=== PATIENT | female | born 1960 | race Caucasian/White ===

== ENCOUNTER 2016-06-05 15:19 | Inpatient (IN) | payer MEDICARE, MEDICAID ==
[2016-06-05 16:48] LABS: ABSOLUTE LYMPHOCYTES (AUTO) 0.6 10^3/uL (0.5-4.7); ABSOLUTE MONOCYTES (AUTO) 0.9 10^3/uL (0.1-1.4); BASOPHILS % (AUTO) 0.2 % (0-2); HEMATOCRIT 47.4 % (36.0-47.0); HEMOGLOBIN 16.2 g/dL (12.0-15.5); HGB HCT DIFFERENCE 1.2; MEAN CORPUSCULAR HEMOGLOBIN 31.8 pg (27.0-33.4); MEAN CORPUSCULAR HGB CONC 34.3 g/dL (32.0-36.0); MEAN CORPUSCULAR VOLUME 93 fl (80-97); MONOCYTES % (AUTO) 10.2 % (3-13); RED BLOOD COUNT 5.11 10^6/uL (3.72-5.28); SEGMENTED NEUTROPHILS % (AUTO) 82.6 % (42-78); WHITE BLOOD COUNT 8.5 10^3/uL (4.0-10.5)
[2016-06-05 17:02] LABS: ALANINE AMINOTRANSFERASE 38 U/L (9-52); ALBUMIN 3.6 g/dL (3.5-5.0); ALKALINE PHOSPHATASE 66 U/L (38-126); ASPARTATE AMINO TRANSFERASE 24 U/L (14-36); BILIRUBIN,TOTAL 0.6 mg/dL (0.2-1.3); BLOOD UREA NITROGEN 26 mg/dL (7-20); CALCIUM 9.1 mg/dL (8.4-10.2); CHLORIDE 76 mmol/L (98-107); CREATINE KINASE 38 U/L (30-135); CREATININE RESULT 0.51 mg/dL (0.52-1.25); GLUCOSE 95 mg/dL (75-110); POTASSIUM 4.1 mmol/L (3.6-5.0); SODIUM 126.8 mmol/L (137-145); TOTAL PROTEIN 6.6 g/dL (6.3-8.2)
[2016-06-05 17:08] LABS: ANION GAP 13 (5-19); CARBON DIOXIDE 38 mmol/L (22-30)
[2016-06-05 17:13] LABS: CREATINE KINASE MB 3.1 ng/mL (<4.55); TROPONIN I 0.019 ng/mL
[2016-06-05] MEDS ORDERED: FUROSEMIDE INJ/PF 40 MG/4 ML SDV IV ONE (18:05)
[2016-06-05 18:35] LABS: APPEARANCE,URINE SLIGHTLY-CLOUDY; BILIRUBIN,URINE NEGATIVE (NEGATIVE); GLUCOSE, URINE NEGATIVE (NEGATIVE); KETONES,URINE NEGATIVE (NEGATIVE); LEUKOCYTE ESTERASE,URINE LARGE (NEGATIVE); NITRITE,URINE NEGATIVE (NEGATIVE); PROTEIN,URINE NEGATIVE (NEGATIVE); URINE SPECIFIC GRAVITY 1.018; UROBILINOGEN,URINE NEGATIVE mg/dL (<2.0)
--- NOTE | 2016-06-05 18:54 | ER Document Report ---
ED Respiratory Problem - General Chief Complaint: Breathing Difficulty Stated Complaint: DIFFICULTY BREATHING Notes: This is a 55-year-old female with history of alcoholism in remission, ongoing tobacco abuse, vascular dementia, COPD who presents from assisted living facility where she was found slumped in a chair with ayala color, perioral cyanosis and oxygen saturations registering in the 40s. No recent fevers. Patient denies any chest pain. She states she is feeling better at this time. Daughter states mentally she is at her baseline. TRAVEL OUTSIDE OF THE [place] IN LAST 30 DAYS: No - Related Data Allergies/Adverse Reactions: Penicillins Allergy (Mild, Verified 05/18/14 22:01) [place] And Derivatives Adverse Reaction (Verified 05/21/14 09:26) coffee (Coffea arabica) [Coffee] Adverse Reaction (Verified 05/21/14 09:22) milk [Milk] Adverse Reaction (Verified 05/21/14 09:23) shellfish derived [Shellfish Derived] Adverse Reaction (Verified 05/21/14 09:29) tomato [Tomato] Adverse Reaction (Verified 05/21/14 09:25) Past Medical History - General Information source: Patient, Relative - The patient's daughter is her legal guardian - Social History Smoking Status: Current Some Day Smoker Frequency of alcohol use: history of heavy alcohol use none currently Drug Abuse: None Lives with: Other - Assisted-living facility Family History: Reviewed & Not Pertinent - Past Medical History Cardiac Medical History: Reports: Hx Hypertension Psychiatric Medical History: Denies: Hx Depression - Immunizations Hx Diphtheria, Pertussis, Tetanus Vaccination: Yes Review of Systems - Review of Systems Constitutional: denies: Fever Cardiovascular: denies: Chest pain, Syncope Respiratory: Cough, Short of breath, Wheezing Gastrointestinal: denies: Abdominal pain, Vomiting Genitourinary: denies: Burning Musculoskeletal: denies: Leg swelling Skin: denies: Rash Hematologic/Lymphatic: denies: Swollen glands Neurological/Psychological: denies: Numbness, Tingling Physical Exam - Vital signs Vitals: Pulse Ox 76 L 06/05/16 15:35 - General General appearance: Alert In distress: None Notes: Extremely frail appearing female who appears much older than her stated age, normal work of breathing, oxygen saturation notably hypoxic at 88% on nasal cannula - HEENT Head: Normocephalic Mouth/Lips: Normal Mucous membranes: Dry Pharynx: Normal Neck: Normal - Respiratory Respiratory status: No respiratory distress, Other - Cough productive of scanty yellow sputum Chest status: Nontender Breath sounds: Decreased air movement, Rales, Wheezing Chest palpation: Normal - Cardiovascular Rhythm: Regular Murmur: No - Abdominal Inspection: Normal Tenderness: Nontender - Back Back: Normal - Extremities General upper extremity: No: Edema General lower extremity: No: Edema - Neurological Neuro grossly intact: Yes Orientation: AAOx4 Motor strength normal: LUE, RUE, LLE, RLE - Psychological Associated symptoms: Other - Uncooperative at times but able to be redirected easily - Skin Skin Temperature: Warm Skin Moisture: Dry Skin Color: Normal Course - Re-evaluation Re-evalutation: 06/05/16 20:27 Patient on able or willing to tolerate the BiPAP or the facemask. Every time she removes the Ventimask her oxygen drops to 80% or lower. Patient intubated successfully after one attempt. Medication with etomidate and succinylcholine. 7.5 ET tube - Vital Signs Vital signs: Temp Pulse Resp BP Pulse Ox 98.7 F 22 H 97/63 L 95 06/05/16 16:00 06/05/16 18:48 06/05/16 18:48 06/05/16 18:48 - Laboratory Result Diagrams: 06/05/16 16:30 06/05/16 16:30 Laboratory results interpreted by me: 06/05/16 06/05/16 06/05/16 16:30 16:30 16:30 Hgb 16.2 H Hct 47.4 H Seg Neutrophils % 82.6 H Lymphocytes % 7.0 L Carbonic Acid ABG pCO2 ABG HCO3 ABG Total CO2 Sodium 126.8 L Chloride 76 L Carbon Dioxide 38 H BUN 26 H Creatinine 0.51 L NT-Pro-B Natriuret Pep 2840 H Urine Blood Ur Leukocyte Esterase 06/05/16 06/05/16 17:20 18:43 Hgb Hct Seg Neutrophils % Lymphocytes % Carbonic Acid 2.32 H ABG pCO2 77.0 H* ABG HCO3 44.0 H ABG Total CO2 46.4 H Sodium Chloride Carbon Dioxide BUN Creatinine NT-Pro-B Natriuret Pep Urine Blood SMALL H Ur Leukocyte Esterase LARGE H - Diagnostic Test Radiology reviewed: Image reviewed, Reports reviewed - EKG Interpretation by Me EKG shows normal: Sinus rhythm Rate: Normal Rhythm: NSR Procedures - Intubation Orotracheal Airway evaluation: Normal anatomy Mallampati Classification: Class 1 Medications: Etomidate, Succinylcholine Intubation method: Orotracheal Blade type: Cornina Blade size: 3 ETT size: 7.5 ETT secured at: Teeth - 21 Breath Sounds after Intubation: Equal End tidal CO2 confirmed: Yes Critical Care Note - Critical Care Note Total time excluding time spent on procedures (mins): 90 Comments: multiple reassesments, intubation, time spent discussion with legal guardian, research consultant coordination Discharge - Discharge Clinical Impression: Acute hypoxemic respiratory failure, Chronic bronchitis with COPD (chronic obstructive pulmonary disease), Abnormal urinalysis Condition: Serious Disposition: ADMITTED INPATIENT Admitting Provider: Hospitalist Unit Admitted: [facility] Referrals: LORI OLEA DO [Primary Care Provider] - Follow up as needed
[2016-06-05 19:06] LABS: ARTERIAL BLOOD BASE EXCESS 14.3 mmol/L
[2016-06-05] MEDS ORDERED: CEFTRIAXONE 1 GM/D5W RTU 50 ML IV ONE (19:26)
[2016-06-05] MEDS ORDERED: ETOMIDATE INJ/PF 20 MG/10 ML SDV IV ONE ×2 (20:12→20:51)
[2016-06-05] MEDS ORDERED: KETAMINE HCL INJ 500 MG/10 ML VIAL IV ONE (20:41)
[2016-06-05] MEDS ORDERED: KETAMINE HCL INJ 500 MG/10 ML VIAL ONE (20:41)
[2016-06-05] MEDS ORDERED: KETAMINE HCL INJ 500 MG/10 ML VIAL IV PRN (20:44)
[2016-06-05] MEDS ORDERED: VECURONIUM BROMIDE INJ 10 MG VIAL IV ONE ×2 (20:47→20:48)
[2016-06-05] MEDS ORDERED: ACETAMINOPHEN 325 MG TABLET NG PRN (20:48)
[2016-06-05] MEDS ORDERED: SUCCINYLCHOLINE CHLORIDE INJ 200 MG/10 ML VIAL IV ONE (20:51)
[2016-06-05 22:51] LABS: URINE BARBITURATES SCREEN NEGATIVE; URINE METHADONE SCREEN NEGATIVE; URINE PHENCYCLIDINE SCREEN NEGATIVE
[2016-06-05] MEDS: FAMOTIDINE INJ/PF 20 MG/2 ML SDV IV SCH (23:05)
[2016-06-05] MEDS: HEPARIN SOD (PORCINE) 5,000 UNIT/ML 1 ML SYRINGE SUBCUT SCH (23:05)
[2016-06-05 23:44] LABS: CREATINE KINASE MB 2.68 ng/mL (<4.55)
[2016-06-05 23:48] LABS: TROPONIN I 0.039 ng/mL
[2016-06-06] MEDS: IPRATROPIUM/ALBUTEROL 0.5-2.5 MG/3 ML AMPUL NEB SCH ×4 (01:37→20:45)
--- NOTE | 2016-06-06 04:25 | PDOC H&P ---
History of Present Illness Admission Date/PCP: 06/05/16 20:48 LORI OLEA Patient complains of: Hypoxia and altered mental status History of Present Illness: LUDY CHOU is a 55 year old female with a past medical history of COPD and severe vascular dementia who is a long-term correction resident who was found by staff to have altered mental status cyanosis and oxygen saturations in the 40s. Patient is resuscitated with oxygen brought emergency room for evaluation with dementia and delirium and combativeness unable to tolerate BiPAP she is intubated for acute on chronic respiratory failure and referred to the hospitalist for admission. Unable to provide additional history. Past Medical History Cardiac Medical History: Reports: Hypertension Pulmonary Medical History: Reports: Chronic Obstructive Pulmonary Disease (COPD) Neurological Medical History: Reports: Other - Advanced vascular dementia Psychiatric Medical History: Reports: Dementia, Other - Former alcohol abuse Denies: Depression Past Surgical History Past Surgical History: Reports: Carotid Endarterectomy Social History Information Source: [facility] Records Lives with: Retirement, Other - Assisted-living facility Smoking Status: Current Every Day Smoker Cigarettes Packs Per Day: 1 Last Time Smoked: 06/05/16 Frequency of Alcohol Use: Heavy Hx Recreational Drug Use: No Drugs: None Hx Prescription Drug Abuse: No - Advance Directive Resuscitation Status: Full Code Family History Family History: Reviewed & Not Pertinent, Other - Unable to obtain Parental Family History Reviewed: Yes Children Family History Reviewed: Yes Sibling(s) Family History Reviewed.: Yes Medication/Allergy Home Medications: Amlodipine Besylate [Norvasc] 10 mg PO DAILY 10/02/13 Buspirone HCl [Buspar 10 mg Tablet] 7.5 mg PO BID 10/02/13 Ferrous Sulfate [Feosol 325 mg Tablet] 325 mg PO DAILY #30 tab 10/02/13 Pantoprazole Sodium [Protonix] 20 mg PO DAILY 10/02/13 Trazodone HCl [Desyrel 50 mg Tablet] 50 mg PO DAILY 10/02/13 Donepezil HCl [Aricept 5 mg Tablet] 5 mg PO DAILY #30 tablet 05/21/14 Lisinopril [Prinivil 10 mg Tablet] 10 mg PO Q12 #60 tablet 05/21/14 Allergies/Adverse Reactions: Penicillins Allergy (Mild, Verified 05/18/14 22:01) [place] And Derivatives Adverse Reaction (Verified 05/21/14 09:26) coffee (Coffea arabica) [Coffee] Adverse Reaction (Verified 05/21/14 09:22) milk [Milk] Adverse Reaction (Verified 05/21/14 09:23) shellfish derived [Shellfish Derived] Adverse Reaction (Verified 05/21/14 09:29) tomato [Tomato] Adverse Reaction (Verified 05/21/14 09:25) Review of Systems ROS unobtainable: Due to mental status Physical Exam Vital Signs: Temp Pulse Resp BP Pulse Ox 99.3 F 81 14 133/74 H 95 06/06/16 01:00 06/06/16 03:00 06/06/16 03:00 06/06/16 03:00 06/06/16 03:00 Intake & Output 06/04/16 06/05/16 06/06/16 11:59 11:59 11:59 Output Total 100 Balance -100 Weight 41.3 kg General appearance: PRESENT: no acute distress, disheveled, thin, other - Appearing much older than stated age with temporal wasting and cachexia Head exam: PRESENT: atraumatic, normocephalic Eye exam: PRESENT: conjunctiva pink, EOMI, PERRLA. ABSENT: scleral icterus Mouth exam: PRESENT: moist, tongue midline Neck exam: PRESENT: other - Bilateral endarterectomy scarring. ABSENT: carotid bruit, JVD, lymphadenopathy, thyromegaly Respiratory exam: PRESENT: accessory muscle use, decreased breath sounds, symmetrical, tachypnea Cardiovascular exam: PRESENT: RRR. ABSENT: diastolic murmur, rubs, systolic murmur Pulses: PRESENT: normal dorsalis pedis pul Vascular exam: PRESENT: normal capillary refill GI/Abdominal exam: PRESENT: normal bowel sounds, soft. ABSENT: distended, guarding, mass, organolmegaly, rebound, tenderness Rectal exam: PRESENT: deferred Extremities exam: PRESENT: full ROM. ABSENT: calf tenderness, clubbing, pedal edema Neurological exam: PRESENT: motor sensory deficit, other - Intubated and sedated Psychiatric exam: PRESENT: appropriate affect, normal mood. ABSENT: homicidal ideation, suicidal ideation Skin exam: PRESENT: dry, intact, warm. ABSENT: cyanosis, rash Results Laboratory Results: 06/05/16 06/05/16 23:05 23:05 Creatine Kinase 66 CK-MB (CK-2) 2.68 Troponin I 0.039 Impressions: Chest X-Ray 06/05/16 15:22 IMPRESSION: Pulmonary vascular congestion Mild interstitial edema at the lung bases Assessment & Plan - Diagnosis (1) Urinary tract infection Qualifiers: Urinary tract infection type: site unspecified Is this a current diagnosis for this admission?: YesPlan: Empiric antibiotics gentle IV fluids reevaluation of labs and urine culture (2) Hyponatremia Is this a current diagnosis for this admission?: YesPlan: likely hydrochlorothiazide use I will hold this medication challenge with IV fluids given hypotension reevaluate chemistry to 12 hours (3) Acute encephalopathy Is this a current diagnosis for this admission?: YesPlan: Acute on chronic delirium with acute exacerbation secondary to urinary tract infection (4) Chronic bronchitis with COPD (chronic obstructive pulmonary disease) Is this a current diagnosis for this admission?: YesPlan: Wean from ventilator repeat ABG in the morning scheduled albuterol and Atrovent and empiric antibiotics (5) Dementia Qualifiers: Dementia type: vascular dementia Dementia behavioral disturbance: with behavioral disturbance Qualified Code(s): F01.51 - Vascular dementia with behavioral disturbance Is this a current diagnosis for this admission?: YesPlan: Patient will likely be challenging to extubate as I am unclear if she will be able to follow directions. - Time Time Spent: 50 to 70 Minutes
[2016-06-06 05:12] LABS: ABSOLUTE MONOCYTES (AUTO) 1.1 10^3/uL (0.1-1.4); ABSOLUTE NEUT (AUTO) 7.7 10^3/uL (1.7-8.2); BASOPHILS % (AUTO) 0.4 % (0-2); EOSINOPHILS % (AUTO) 0.1 % (0-6); HEMOGLOBIN 14.5 g/dL (12.0-15.5); HGB HCT DIFFERENCE 1.5; LYMPHOCYTES % (AUTO) 10.6 % (13-45); MEAN CORPUSCULAR HGB CONC 34.5 g/dL (32.0-36.0); MEAN CORPUSCULAR VOLUME 93 fl (80-97); RED BLOOD COUNT 4.53 10^6/uL (3.72-5.28); RED CELL DISTRIBUTION WIDTH 13.7 % (11.5-14.0); SEGMENTED NEUTROPHILS % (AUTO) 77.9 % (42-78); WHITE BLOOD COUNT 9.8 10^3/uL (4.0-10.5)
[2016-06-06 05:20] LABS: ANION GAP 9 (5-19); BLOOD UREA NITROGEN 25 mg/dL (7-20); CALCIUM 7.8 mg/dL (8.4-10.2); CARBON DIOXIDE 37 mmol/L (22-30); CHLORIDE 84 mmol/L (98-107); CREATINE KINASE 58 U/L (30-135); CREATININE RESULT 0.57 mg/dL (0.52-1.25); GLUCOSE 72 mg/dL (75-110); POTASSIUM 3.2 mmol/L (3.6-5.0); SODIUM 130.1 mmol/L (137-145)
[2016-06-06 05:35] LABS: CREATINE KINASE MB 1.42 ng/mL (<4.55); TROPONIN I 0.049 ng/mL
[2016-06-06 05:36] LABS: ARTERIAL BLOOD BASE EXCESS 12.6 mmol/L; ARTERIAL BLOOD O2 SATURATION 93.9 % (94-98)
[2016-06-06] MEDS: HEPARIN SOD (PORCINE) 5,000 UNIT/ML 1 ML SYRINGE SUBCUT SCH ×3 (05:48→21:45)
[2016-06-06] MEDS: PROPOFOL 100 ML IV PRN ×2 (06:19→20:04)
[2016-06-06] MEDS ORDERED: INSULIN LISPRO 100 UNIT/ML 3 ML VIAL SUBCUT PRN (08:08)
[2016-06-06] MEDS ORDERED: DEXTROSE 50%-WATER 25 GM/50 ML DISP.SYRIN IV PRN ×2 (08:08)
[2016-06-06] MEDS ORDERED: DEXTROSE 40% GEL 15 GM TUBE PO PRN ×2 (08:08)
[2016-06-06] MEDS ORDERED: GLUCAGON,HUMAN RECOMB 1 MG INJ IM PRN (08:08)
[2016-06-06] MEDS ORDERED: POTASSIUM CHLORIDE 20 MEQ/15 ML UDCUP NG ONE (09:00)
[2016-06-06] MEDS ORDERED: LANSOPRAZOLE 15 MG TAB.RAP.DR PO ONE (10:00)
[2016-06-06] MEDS ORDERED: FENTANYL CITRATE INJ/PF 100 MCG/2 ML AMPUL IV PRN (10:00)
[2016-06-06] MEDS ORDERED: (PENDING PHARMACY ID) (Pantoprazole Sodium [Protonix] 20 MG) PO SCH (10:00)
[2016-06-06] MEDS ORDERED: MIDAZOLAM 2 MG/2 ML INJ IV PRN (10:00)
[2016-06-06] MEDS ORDERED: NICOTINE 14 MG/24 HR PATCH.TD24 TD PRN (10:03)
[2016-06-06] MEDS: LEVOFLOXACIN 750 MG/D5W RTU 150 ML IV SCH (10:09)
[2016-06-06] MEDS: FAMOTIDINE INJ/PF 20 MG/2 ML SDV IV SCH ×2 (10:09→21:45)
[2016-06-06] MEDS: DEXTROSE 5%-NORMAL SALINE 1,000 ML IV PRN ×2 (10:10→21:46)
[2016-06-06] MEDS ORDERED: FENTANYL CITRATE INJ/PF 100 MCG/2 ML AMPUL IV ONE (11:00)
[2016-06-06] MEDS ORDERED: HALOPERIDOL 1 MG TABLET PO ONE (11:15)
[2016-06-06] MEDS ORDERED: LIDOCAINE 5% (700 MG) TRANSDERMAL ADH..PATCH TP ONE (11:15)
[2016-06-06] MEDS ORDERED: INFLUENZA ADLT QUAD (36MOS+) 2016-17 VAC 0.5 ML SYR IM PRN (11:45)
[2016-06-06] MEDS ORDERED: LEVALBUTEROL HCL NEB 1.25 MG/3 ML AMPUL NEB SCH (12:00)
[2016-06-06 12:33] LABS: CREATINE KINASE MB 1.03 ng/mL (<4.55); TROPONIN I 0.026 ng/mL
[2016-06-06 13:05] LABS: VENOUS BLOOD BASE EXCESS 8.9 mmol/L; VENOUS BLOOD HCO3 35.3 mmol/L (20-32); VENOUS BLOOD PCO2 53.6 mmHg (35-63); VENOUS BLOOD PH 7.44 (7.30-7.42)
[2016-06-06] MEDS: METHYLPREDNISOLONE INJ 40 MG/1 ML SDV IV SCH ×2 (14:42→21:45)
--- NOTE | 2016-06-06 15:45 | EKG REPORT ---
SEVERITY:- ABNORMAL ECG - SINUS RHYTHM RIGHT ATRIAL ABNORMALITY LEFT VENTRICULAR HYPERTROPHY BORDERLINE PROLONGED QT INTERVAL : Confirmed by: Robb Monteiro 06-Jun-2016 15:45:03
--- NOTE | 2016-06-06 15:46 | EKG REPORT ---
SEVERITY:- ABNORMAL ECG - SINUS RHYTHM RIGHT ATRIAL ABNORMALITY CONSIDER LEFT VENTRICULAR HYPERTROPHY : Confirmed by: Robb Monteiro 06-Jun-2016 15:45:14
[2016-06-06] MEDS ORDERED: LEVALBUTEROL HCL NEB 1.25 MG/3 ML AMPUL NEB PRN (16:59)
--- NOTE | 2016-06-06 17:14 | PDOC CONSULTATION ---
Consultation Consult Date: 06/06/16 Attending physician:: JULIEN ORONA Consult reason:: Respiratory failure History of Present Illness Admission Date/PCP: 06/05/16 20:48 LORI OLEA History of Present Illness: LUDY CHOU is a 55 year old female with a past medical history of COPD and severe vascular dementia who is a long-term [place] [facility] resident who was found by staff to have altered mental status cyanosis and oxygen saturations in the 40s. Patient is resuscitated with oxygen brought emergency room for evaluation with dementia and delirium and combativeness unable to tolerate BiPAP she is intubated for acute on chronic respiratory failure and referred to the hospitalist for admission. Unable to provide additional history. Past Medical History Cardiac Medical History: Reports: Hypertension Pulmonary Medical History: Reports: Chronic Obstructive Pulmonary Disease (COPD) Neurological Medical History: Reports: Other - Advanced vascular dementia Psychiatric Medical History: Reports: Dementia, Other - Former alcohol abuse Denies: Depression Past Surgical History Past Surgical History: Reports: Carotid Endarterectomy Social History Information Source: [facility] Records Lives with: Alf, Other - Assisted-living facility Smoking Status: Current Every Day Smoker Cigarettes Packs Per Day: 3 Number of Years Smokin Last Time Smoked: 06/05/16 Passive smoke exposure as: Both Frequency of Alcohol Use: Heavy Hx Recreational Drug Use: No Drugs: None Hx Prescription Drug Abuse: No Do you have pets?: No Have you had any respiratory illnesses as a child?: No Have you been exposed to any sick contacts recently?: No Have you had any recent respiratory illnesses?: No - Advance Directive Resuscitation Status: Full Code Family History Family History: Reviewed & Not Pertinent, Other - Unable to obtain Parental Family History Reviewed: No Children Family History Reviewed: No Sibling(s) Family History Reviewed.: No Medication/Allergy Home Medications: Amlodipine Besylate [Norvasc] 10 mg PO DAILY 10/02/13 Buspirone HCl [Buspar 10 mg Tablet] 7.5 mg PO BID 10/02/13 Ferrous Sulfate [Feosol 325 mg Tablet] 325 mg PO DAILY #30 tab 10/02/13 Pantoprazole Sodium [Protonix] 20 mg PO DAILY 10/02/13 Trazodone HCl [Desyrel 50 mg Tablet] 50 mg PO DAILY 10/02/13 Donepezil HCl [Aricept 5 mg Tablet] 5 mg PO DAILY #30 tablet 05/21/14 Lisinopril [Prinivil 10 mg Tablet] 10 mg PO Q12 #60 tablet 05/21/14 Allergies/Adverse Reactions: Penicillins Allergy (Mild, Verified 05/18/14 22:01) latex Allergy (Unverified 06/06/16 13:28) [place] And Derivatives Adverse Reaction (Verified 05/21/14 09:26) coffee (Coffea arabica) [Coffee] Adverse Reaction (Verified 05/21/14 09:22) milk [Milk] Adverse Reaction (Verified 05/21/14 09:23) shellfish derived [Shellfish Derived] Adverse Reaction (Verified 05/21/14 09:29) tomato [Tomato] Adverse Reaction (Verified 05/21/14 09:25) Review of Systems ROS unobtainable: Due to endotracheal tube Physical Exam Vital Signs: Temp Pulse Resp BP Pulse Ox 99.3 F 86 24 H 155/79 H 93 06/06/16 01:00 06/06/16 12:00 06/06/16 12:00 06/06/16 11:14 06/06/16 12:00 Intake & Output 06/05/16 06/06/16 06/07/16 06:59 06:59 06:59 Intake Total 536 Output Total 247 250 Balance 289 -250 Weight 41.3 kg Looks much older than stated age General appearance: PRESENT: no acute distress, disheveled, thin Head exam: PRESENT: atraumatic, normocephalic Eye exam: PRESENT: conjunctiva pale Mouth exam: PRESENT: dry mucosa, neck supple, tongue midline, other - ET tube in place Neck exam: ABSENT: carotid bruit, JVD, lymphadenopathy, thyromegaly Respiratory exam: PRESENT: decreased breath sounds, prolonged expiratory phas, rhonchi, symmetrical, unlabored, wheezes Cardiovascular exam: PRESENT: RRR, +S1, +S2 Pulses: PRESENT: normal carotid pulses GI/Abdominal exam: PRESENT: normal bowel sounds, soft. ABSENT: distended, guarding, mass, organolmegaly, rebound, tenderness Rectal exam: PRESENT: deferred Gentrourinary exam: PRESENT: indwelling catheter Musculoskeletal exam: PRESENT: normal inspection Skin exam: PRESENT: dry, warm Results Laboratory Results: 06/06/16 04:50 06/06/16 04:50 06/06/16 06/06/16 06/06/16 04:50 04:50 04:50 WBC 9.8 RBC 4.53 Hgb 14.5 Hct 42.0 MCV 93 MCH 32.0 MCHC 34.5 RDW 13.7 Plt Count 214 Seg Neutrophils % 77.9 Lymphocytes % 10.6 L Monocytes % 11.0 Eosinophils % 0.1 Basophils % 0.4 Absolute Neutrophils 7.7 Absolute Lymphocytes 1.0 Absolute Monocytes 1.1 Absolute Eosinophils 0.0 Absolute Basophils 0.0 Carbonic Acid HCO3/H2CO3 Ratio ABG pH ABG pCO2 ABG pO2 ABG HCO3 ABG O2 Saturation ABG Base Excess VBG pH VBG pCO2 VBG HCO3 VBG Base Excess FiO2 Sodium 130.1 L Potassium 3.2 L Chloride 84 L Carbon Dioxide 37 H Anion Gap 9 BUN 25 H Creatinine 0.57 Est GFR ( Amer) > 60 Est GFR (Non-Af Amer) > 60 Glucose 72 L Calcium 7.8 L Magnesium 1.8 06/06/16 06/06/16 05:15 12:58 WBC RBC Hgb Hct MCV MCH MCHC RDW Plt Count Seg Neutrophils % Lymphocytes % Monocytes % Eosinophils % Basophils % Absolute Neutrophils Absolute Lymphocytes Absolute Monocytes Absolute Eosinophils Absolute Basophils Carbonic Acid 1.48 H HCO3/H2CO3 Ratio 25:1 ABG pH 7.50 H ABG pCO2 49.2 H ABG pO2 63.9 L ABG HCO3 37.8 H ABG O2 Saturation 93.9 L ABG Base Excess 12.6 VBG pH 7.44 H VBG pCO2 53.6 VBG HCO3 35.3 H VBG Base Excess 8.9 FiO2 40% Sodium Potassium Chloride Carbon Dioxide Anion Gap BUN Creatinine Est GFR ( Amer) Est GFR (Non-Af Amer) Glucose Calcium Magnesium 06/05/16 06/05/16 06/06/16 23:05 23:05 04:50 Creatine Kinase 66 CK-MB (CK-2) 2.68 1.42 Troponin I 0.039 0.049 06/06/16 06/06/16 06/06/16 04:50 11:49 11:49 Creatine Kinase 58 180 H CK-MB (CK-2) 1.03 Troponin I 0.026 Impressions: Chest X-Ray 06/05/16 15:22 IMPRESSION: Pulmonary vascular congestion Mild interstitial edema at the lung bases Chest/Abdomen CTA 06/06/16 00:00 IMPRESSION: NO PULMONARY EMBOLI. COPD HEAVY BURDEN OF ATHEROSCLEROTIC ARTERIAL PLAQUE WITH PROBABLE OCCLUDED LEFT SUBCLAVIAN ARTERY AND POSSIBLE INFRARENAL ABDOMINAL AORTIC OCCLUSION DISTAL TO THE RENAL ARTERIES Assessment & Plan - Diagnosis (1) Acute hypoxemic respiratory failure Is this a current diagnosis for this admission?: YesPlan: Ventilating well with adequate pH slightly elevated FiO2 requirements patient allegedly's on oxygen at home but noncompliant (2) Chronic bronchitis with COPD (chronic obstructive pulmonary disease) Is this a current diagnosis for this admission?: YesPlan: Continue current antibiotic therapy (3) Dementia Qualifiers: Dementia type: vascular dementia Dementia behavioral disturbance: with behavioral disturbance Qualified Code(s): F01.51 - Vascular dementia with behavioral disturbance Is this a current diagnosis for this admission?: YesPlan: Unchanged - Time Critical Time spent with patient: 35 or more minutes - 50 minute
--- NOTE | 2016-06-06 18:16 | XCELERA REPORT ---
[address] [id number] Transthoracic Echocardiogram Report Name: LUDY CHOU Age: 55 yrs Gender: Female : 1960 Patient Status: Inpatient Patient Location: ICU\S\609\S\A Study Date: 06/06/2016 09:32 AM Height: 62 in Weight: 91 lb BSA: 1.4 m2 Procedure: A two-dimensional transthoracic echocardiogram with color flow and Doppler was performed. Study Quality: Fair. Reason For Study: chf History: CHF. Ordering Physician: DEVONTE ALEMAN Performed By: Mihir Burk Interpretation Summary The left ventricle is normal in size. There is normal left ventricular wall thickness. LV EF is > than 60%% Left ventricular systolic function is normal. Doppler measurements suggest impaired left ventricular relaxation, which is associated with grade I/IV or mild diastolic dysfunction The left ventricular wall motion is normal. The left atrial size is normal. The interatrial septum is intact with no evidence for an atrial septal defect. There is no evidence of mitral valve prolapse. There is no mitral valve stenosis. There is a trace amount of mitral regurgitation There is no aortic valve stenosis There is no LVOT obstruction. There is a moderate amount of aortic regurgitation There is no tricuspid stenosis. There is a trace amount of tricuspid regurgitation Right ventricular systolic pressure is normal. RVSP is 29 mm of Hg , with RA mean of 10. There is no pericardial effusion. MMode/2D Measurements \T\ Calculations RVDd: 2.3 cm LVIDd: 3.9 cm FS: 32.4 % Ao root diam: 2.1 cm IVSd: 0.75 cm LVIDs: 2.7 cm EDV(Teich): 66.8 ml LVPWd: 0.79 cm ESV(Teich): 25.9 ml Ao root area: 3.4 cm2 EF(Teich): 61.3 % LA dimension: 2.3 cm Doppler Measurements \T\ Calculations MV E max barbara: MV P1/2t max barbara: Ao V2 max: AI max barbara: 94.9 cm/sec 98.2 cm/sec 175.5 cm/sec 396.1 cm/sec MV A max barbara: MV P1/2t: 66.7 msec Ao max PG: AI max P.1 cm/sec 12.3 mmHg 62.8 mmHg MV E/A: 0.87 MVA(P1/2t): 3.3 cm2 AI dec slope: MV dec slope: 430.7 cm/sec2 256.7 cm/sec2 MV dec time: AI P1/2t: 0.24 sec 452.0 msec LV V1 max PG: PA V2 max: TR max barbara: 4.7 mmHg 93.8 cm/sec 216.1 cm/sec LV V1 max: PA max P.5 mmHg TR max P.0 cm/sec 18.7 mmHg Left Ventricle The left ventricle is normal in size. There is normal left ventricular wall thickness. LV EF is > than 60%%. Left ventricular systolic function is normal. Doppler measurements suggest impaired left ventricular relaxation, which is associated with grade I/IV or mild diastolic dysfunction. The left ventricular wall motion is normal. There is no thrombus. There is no ventricular septal defect visualized. Right Ventricle The right ventricle is normal in size and function. Atria The right atrium is normal. The left atrial size is normal. The interatrial septum is intact with no evidence for an atrial septal defect. Mitral Valve There is no evidence of mitral valve prolapse. There is no vegetation seen on the mitral valve. There is no mitral valve stenosis. There is a trace amount of mitral regurgitation. Aortic Valve There is no aortic valve stenosis. There is no LVOT obstruction. There is a moderate amount of aortic regurgitation. Tricuspid Valve There is no tricuspid stenosis. There is a trace amount of tricuspid regurgitation. Right ventricular systolic pressure is normal. RVSP is 29 mm of Hg , with RA mean of 10. Pulmonic Valve There is no pulmonic valvular stenosis. There is no pulmonic valvular regurgitation. Great Vessels The aortic root is normal size. Effusions There is no pericardial effusion. : DEVONTE ALEMAN > Briana Velarde
[2016-06-06] MEDS: HALOPERIDOL 1 MG TABLET PO SCH (21:44)
[2016-06-06] MEDS: ALPRAZOLAM 0.25 MG TABLET NG SCH (21:44)
[2016-06-06] MEDS ORDERED: HALOPERIDOL 1 MG TABLET PO SCH (22:00)
--- NOTE | 2016-06-06 23:24 | PDOC PROGRESS REPORT ---
Subjective Progress Note for:: 06/06/16 Subjective:: Patient intubated and lightly sedated. She does follow commands for me. Unable to obtain review of systems secondary to intubated status Physical Exam Vital Signs: Temp Pulse Resp BP Pulse Ox 99.3 F 72 15 151/74 H 96 06/06/16 01:00 06/06/16 13:00 06/06/16 22:00 06/06/16 21:15 06/06/16 22:00 Intake & Output 06/05/16 06/06/16 06/07/16 06:59 06:59 06:59 Intake Total 536 645 Output Total 247 690 Balance 289 -45 Weight 41.3 kg Exam: General: Awake alert and follows commands on sedation, intubated HEENT: AT/NC, PERRL, EOMI, oropharynx is moist, pink, no scleral icterus, no conjunctival injection Neck: No JVD, trachea midline Chest: Clear to auscultation bilaterally, no wheezes rhonchi or rales, prolonged expiratory phase CV: Regular rate and rhythm, normal S1 and S2, no murmur, rub, or gallop Abdomen: Soft, nontender to palpation, nondistended, active bowel sounds; no rebound, rigidity, or guarding Extremities: No cyanosis, clubbing or edema Neuro: Moves all extremities and follows commands Results Laboratory Results: 06/06/16 04:50 06/06/16 04:50 06/06/16 06/06/16 06/06/16 04:50 04:50 04:50 WBC 9.8 RBC 4.53 Hgb 14.5 Hct 42.0 MCV 93 MCH 32.0 MCHC 34.5 RDW 13.7 Plt Count 214 Seg Neutrophils % 77.9 Lymphocytes % 10.6 L Monocytes % 11.0 Eosinophils % 0.1 Basophils % 0.4 Absolute Neutrophils 7.7 Absolute Lymphocytes 1.0 Absolute Monocytes 1.1 Absolute Eosinophils 0.0 Absolute Basophils 0.0 Carbonic Acid HCO3/H2CO3 Ratio ABG pH ABG pCO2 ABG pO2 ABG HCO3 ABG O2 Saturation ABG Base Excess VBG pH VBG pCO2 VBG HCO3 VBG Base Excess FiO2 Sodium 130.1 L Potassium 3.2 L Chloride 84 L Carbon Dioxide 37 H Anion Gap 9 BUN 25 H Creatinine 0.57 Est GFR ( Amer) > 60 Est GFR (Non-Af Amer) > 60 Glucose 72 L Calcium 7.8 L Magnesium 1.8 06/06/16 06/06/16 05:15 12:58 WBC RBC Hgb Hct MCV MCH MCHC RDW Plt Count Seg Neutrophils % Lymphocytes % Monocytes % Eosinophils % Basophils % Absolute Neutrophils Absolute Lymphocytes Absolute Monocytes Absolute Eosinophils Absolute Basophils Carbonic Acid 1.48 H HCO3/H2CO3 Ratio 25:1 ABG pH 7.50 H ABG pCO2 49.2 H ABG pO2 63.9 L ABG HCO3 37.8 H ABG O2 Saturation 93.9 L ABG Base Excess 12.6 VBG pH 7.44 H VBG pCO2 53.6 VBG HCO3 35.3 H VBG Base Excess 8.9 FiO2 40% Sodium Potassium Chloride Carbon Dioxide Anion Gap BUN Creatinine Est GFR ( Amer) Est GFR (Non-Af Amer) Glucose Calcium Magnesium 06/05/16 06/05/16 06/06/16 23:05 23:05 04:50 Creatine Kinase 66 CK-MB (CK-2) 2.68 1.42 Troponin I 0.039 0.049 06/06/16 06/06/16 06/06/16 04:50 11:49 11:49 Creatine Kinase 58 180 H CK-MB (CK-2) 1.03 Troponin I 0.026 Impressions: Chest X-Ray 06/05/16 15:22 IMPRESSION: Pulmonary vascular congestion Mild interstitial edema at the lung bases Chest/Abdomen CTA 06/06/16 00:00 IMPRESSION: NO PULMONARY EMBOLI. COPD HEAVY BURDEN OF ATHEROSCLEROTIC ARTERIAL PLAQUE WITH PROBABLE OCCLUDED LEFT SUBCLAVIAN ARTERY AND POSSIBLE INFRARENAL ABDOMINAL AORTIC OCCLUSION DISTAL TO THE RENAL ARTERIES Assessment & Plan - Diagnosis (1) Chronic bronchitis with COPD (chronic obstructive pulmonary disease) Is this a current diagnosis for this admission?: YesPlan: Continue patient on Solu-Medrol and aggressive pulmonary toileting. (2) Acute hypoxemic respiratory failure Is this a current diagnosis for this admission?: YesPlan: Likely will need oxygen for home. (3) Acute encephalopathy Is this a current diagnosis for this admission?: YesPlan: This is likely secondary to underlying urinary tract infection complicated by CO2 narcosis. (4) Hypokalemia Is this a current diagnosis for this admission?: YesPlan: We'll replete and recheck along with magnesium. (5) Tobacco abuse Is this a current diagnosis for this admission?: YesPlan: Nicotine patch (6) Alcoholic dementia Qualifiers: Dementia behavioral disturbance: without behavioral disturbance Qualified Code(s): F10.97 - Alcohol use, unspecified with alcohol-induced persisting dementia Is this a current diagnosis for this admission?: YesPlan: Resides at assisted living facility due to this. (7) History of alcoholism Is this a current diagnosis for this admission?: YesPlan: Patient has not had a drink in many years. (8) Carotid artery disease Qualifiers: Laterality: bilateral Qualified Code(s): I77.9 - Disorder of arteries and arterioles, unspecified Is this a current diagnosis for this admission?: YesPlan: Patient underwent carotid endarterectomy in February and November of this year (9) Dementia Qualifiers: Dementia type: vascular dementia Dementia behavioral disturbance: with behavioral disturbance Qualified Code(s): F01.51 - Vascular dementia with behavioral disturbance Is this a current diagnosis for this admission?: YesPlan: An assisted living facility based on this. (10) Do not resuscitate Is this a current diagnosis for this admission?: YesPlan: Discussion had with both daughters and power of corporate associate attorney has selected for DO NOT RESUSCITATE. (11) Pulmonary cachexia due to chronic obstructive pulmonary disease Is this a current diagnosis for this admission?: YesPlan: Patient with a BMI of 16.7. Orders reports poor appetite and recent loss of weight. - Time Critical Time spent with patient: 35 or more minutes Medications reviewed and adjusted accordingly: Yes
[2016-06-07] MEDS: PROPOFOL 100 ML IV PRN ×2 (04:10→08:31)
[2016-06-07 05:00] LABS: ANION GAP 7 (5-19); BLOOD UREA NITROGEN 13 mg/dL (7-20); CALCIUM 8.2 mg/dL (8.4-10.2); CARBON DIOXIDE 34 mmol/L (22-30); CHLORIDE 92 mmol/L (98-107); CREATININE RESULT 0.42 mg/dL (0.52-1.25); GLUCOSE 181 mg/dL (75-110); MAGNESIUM 2.1 mg/dL (1.6-2.3); PHOSPHORUS 2.9 mg/dL (2.5-4.5); POTASSIUM 3.5 mmol/L (3.6-5.0); SODIUM 133.4 mmol/L (137-145)
[2016-06-07 05:07] LABS: HEMATOCRIT 46.1 % (36.0-47.0); HEMOGLOBIN 15.5 g/dL (12.0-15.5); HGB HCT DIFFERENCE 0.4; MEAN CORPUSCULAR HEMOGLOBIN 31.7 pg (27.0-33.4); MEAN CORPUSCULAR HGB CONC 33.7 g/dL (32.0-36.0); MEAN CORPUSCULAR VOLUME 94 fl (80-97); PREALBUMIN 4.6 mg/dL (17.6-36.0); WHITE BLOOD COUNT 13.5 10^3/uL (4.0-10.5)
[2016-06-07 05:09] LABS: BAND NEUTROPHILS % (MANUAL) 1 % (3-5); BASOPHILS % (MANUAL) 0 % (0-2); EOSINOPHILS % (MANUAL) 0 % (0-6); LYMPHOCYTES % (MANUAL) 5 % (13-45); TOTAL CELLS COUNTED 100
[2016-06-07 05:11] LABS: ANISOCYTOSIS SLIGHT; BURR CELLS SLIGHT; OVALOCYTES SLIGHT; POIKILOCYTOSIS SLIGHT; POLYCHROMASIA SLIGHT; TEAR DROP CELLS SLIGHT; TOXIC GRANULATION SLIGHT
[2016-06-07] MEDS: ALPRAZOLAM 0.25 MG TABLET NG SCH ×3 (05:47→21:32)
[2016-06-07] MEDS: HEPARIN SOD (PORCINE) 5,000 UNIT/ML 1 ML SYRINGE SUBCUT SCH ×3 (05:47→21:34)
[2016-06-07] MEDS: LANSOPRAZOLE 15 MG TAB.RAP.DR PO SCH (05:47)
[2016-06-07] MEDS: METHYLPREDNISOLONE INJ 40 MG/1 ML SDV IV SCH (05:47)
[2016-06-07] MEDS: HALOPERIDOL 1 MG TABLET PO SCH (05:48)
[2016-06-07] MEDS ORDERED: LANSOPRAZOLE 15 MG TAB.RAP.DR PO SCH (06:00)
[2016-06-07 06:10] LABS: ARTERIAL BLOOD BASE EXCESS 4.3 mmol/L
[2016-06-07] MEDS ORDERED: POTASSIUM CHLORIDE 20 MEQ/15 ML UDCUP NG ONE (08:06)
[2016-06-07] MEDS: IPRATROPIUM/ALBUTEROL 0.5-2.5 MG/3 ML AMPUL NEB SCH ×3 (08:26→20:17)
[2016-06-07] MEDS: DEXTROSE 5%-NORMAL SALINE 1,000 ML IV PRN (08:45)
[2016-06-07] MEDS ORDERED: FUROSEMIDE INJ/PF 20 MG/2 ML SDV IV ONE (09:00)
[2016-06-07] MEDS ORDERED: METHYLPREDNISOLONE INJ 40 MG/1 ML SDV IV ONE (09:00)
[2016-06-07] MEDS: LEVOFLOXACIN 750 MG/D5W RTU 150 ML IV SCH (09:57)
[2016-06-07] MEDS: FAMOTIDINE INJ/PF 20 MG/2 ML SDV IV SCH ×2 (09:58→21:32)
--- NOTE | 2016-06-07 10:53 | Physician Advisory Note ---
Physician Advisor ProgressNote .: Pursuant to the plan for [facility], I have reviewed the medical record for this patient. Physician Advisor Statement: Excellent job documenting (+)accessory muscle use in H&P, which along with the severe hypoxemia + hypercarbia, supports dx of Ac Hypoxemic Resp Failure. Possible documentation opportunities if attending agrees: 1. Please document Principal Dx (reason for adm) as dx #1 in all notes. 2. "Suspected Acute bronchitis", or "Acute on chronic bronchitis" ? - or what is the suspected dx for which the Levaquin is given? 3. "acute hyponatremia, likely due to " 4. "underweight with protein-calorie malnutrition [state mild, mod, or severe] with BMI 16.7, wt loss, cachexia, temporal wasting, Cr 0.51, ____[?appetite loss , ]" [if possible, give specifics on intake, wt loss, loss of SQ fat & muscle mass, diminished hand regional account executive strength, & clinical importance such as (A) nutritional assessment ordered, (B) modified diet or supplements ordered, (C) additional labs ordered, (D) prolonged wound healing time, (E) delayed infxn clearance] - - - Auditors are strict about the dx of malnutrition - has to be explicitly spelled out. As always, if concerned about any unstable VS or abnormal labs, please comment on them & note what doing about them, & please document each day the potential clinical problems you are concerned could occur if pt not kept in hospital for tx at this time. Thanks for your help with documentation accuracy/specificity improvement! Latasha Pulido MD
[2016-06-07] MEDS ORDERED: HALOPERIDOL 1 MG TABLET PO PRN (11:15)
[2016-06-07] MEDS ORDERED: HALOPERIDOL LACTATE INJ 5 MG/1 ML VIAL IV SCH (11:45)
[2016-06-07] MEDS ORDERED: METOPROLOL TARTRATE PF/INJ 5 MG/5 ML SDV IV ONE ×2 (11:45→12:28)
[2016-06-07] MEDS: LIDOCAINE 5% (700 MG) TRANSDERMAL ADH..PATCH TP SCH (14:31)
[2016-06-07] MEDS: METHYLPREDNISOLONE INJ 125 MG/2 ML SDV IV SCH ×2 (14:33→21:35)
[2016-06-07] MEDS ORDERED: DEXTROSE 5%-NORMAL SALINE 1,000 ML IV PRN (19:34)
--- NOTE | 2016-06-07 19:38 | PDOC PROGRESS REPORT ---
Subjective Progress Note for:: 06/07/16 Subjective:: Patient currently is following commands on sedation. Anticipate good weaning and patient today. Physical Exam Vital Signs: Temp Pulse Resp BP Pulse Ox 99.3 F 65 13 127/72 H 97 06/06/16 01:00 06/07/16 07:55 06/07/16 07:15 06/07/16 07:15 06/07/16 07:15 Intake & Output 06/06/16 06/07/16 06/08/16 06:59 06:59 06:59 Intake Total 536 2113 Output Total 247 930 25 Balance 289 1183 -25 Weight 41.3 kg 40.4 kg Exam: General: Awake alert and follows commands on sedation, intubated HEENT: AT/NC, PERRL, EOMI, oropharynx is moist, pink, no scleral icterus, no conjunctival injection Neck: No JVD, trachea midline Chest: Light end expiratory wheezes CV: Regular rate and rhythm, normal S1 and S2, no murmur, rub, or gallop Abdomen: Soft, nontender to palpation, nondistended, active bowel sounds; no rebound, rigidity, or guarding Extremities: No cyanosis, clubbing or edema Neuro: Moves all extremities and follows commands Results Laboratory Results: 06/07/16 04:17 06/07/16 04:17 06/06/16 06/06/16 06/07/16 04:50 12:58 04:17 WBC 13.5 H RBC 4.90 Hgb 15.5 Hct 46.1 MCV 94 MCH 31.7 MCHC 33.7 RDW 14.0 Plt Count 214 Seg Neutrophils % Not Reportable Lymphocytes % Not Reportable Monocytes % Not Reportable Eosinophils % Not Reportable Basophils % Not Reportable Absolute Neutrophils Not Reportable Absolute Lymphocytes Not Reportable Absolute Monocytes Not Reportable Absolute Eosinophils Not Reportable Absolute Basophils Not Reportable Carbonic Acid HCO3/H2CO3 Ratio ABG pH ABG pCO2 ABG pO2 ABG HCO3 ABG O2 Saturation ABG Base Excess VBG pH 7.44 H VBG pCO2 53.6 VBG HCO3 35.3 H VBG Base Excess 8.9 FiO2 Sodium Potassium Chloride Carbon Dioxide Anion Gap BUN Creatinine Est GFR ( Amer) Est GFR (Non-Af Amer) Glucose Calcium Phosphorus Magnesium 1.8 Prealbumin 06/07/16 06/07/16 04:17 05:55 WBC RBC Hgb Hct MCV MCH MCHC RDW Plt Count Seg Neutrophils % Lymphocytes % Monocytes % Eosinophils % Basophils % Absolute Neutrophils Absolute Lymphocytes Absolute Monocytes Absolute Eosinophils Absolute Basophils Carbonic Acid 1.37 H HCO3/H2CO3 Ratio 21:1 ABG pH 7.43 ABG pCO2 45.5 H ABG pO2 68.3 L ABG HCO3 29.5 H ABG O2 Saturation 94.0 ABG Base Excess 4.3 VBG pH VBG pCO2 VBG HCO3 VBG Base Excess FiO2 40% Sodium 133.4 L Potassium 3.5 L Chloride 92 L Carbon Dioxide 34 H Anion Gap 7 BUN 13 Creatinine 0.42 L Est GFR ( Amer) > 60 Est GFR (Non-Af Amer) > 60 Glucose 181 H Calcium 8.2 L Phosphorus 2.9 Magnesium 2.1 Prealbumin 4.6 L 06/05/16 06/05/16 06/06/16 23:05 23:05 04:50 Creatine Kinase 66 CK-MB (CK-2) 2.68 1.42 Troponin I 0.039 0.049 06/06/16 06/06/16 06/06/16 04:50 11:49 11:49 Creatine Kinase 58 180 H CK-MB (CK-2) 1.03 Troponin I 0.026 Impressions: Chest/Abdomen CTA 06/06/16 00:00 IMPRESSION: NO PULMONARY EMBOLI. COPD HEAVY BURDEN OF ATHEROSCLEROTIC ARTERIAL PLAQUE WITH PROBABLE OCCLUDED LEFT SUBCLAVIAN ARTERY AND POSSIBLE INFRARENAL ABDOMINAL AORTIC OCCLUSION DISTAL TO THE RENAL ARTERIES Chest X-Ray 06/07/16 06:00 IMPRESSION: No significant change. No pneumothorax. Assessment & Plan - Diagnosis (1) Chronic bronchitis with COPD (chronic obstructive pulmonary disease) Is this a current diagnosis for this admission?: YesPlan: Continue patient on Solu-Medrol and aggressive pulmonary toileting. (2) Acute hypoxemic respiratory failure Is this a current diagnosis for this admission?: YesPlan: Likely will need oxygen for home. (3) Acute encephalopathy Is this a current diagnosis for this admission?: YesPlan: Likely secondary to UTI. Complicated by patient's underlying CO2 narcosis. (4) Urinary tract infection Qualifiers: Urinary tract infection type: site unspecified Is this a current diagnosis for this admission?: YesPlan: Patient currently on Levaquin for this. Pending culture (5) Hypokalemia Is this a current diagnosis for this admission?: Yes (6) Tobacco abuse Is this a current diagnosis for this admission?: Yes (7) Alcoholic dementia Qualifiers: Dementia behavioral disturbance: without behavioral disturbance Qualified Code(s): F10.97 - Alcohol use, unspecified with alcohol-induced persisting dementia Is this a current diagnosis for this admission?: Yes (8) History of alcoholism Is this a current diagnosis for this admission?: Yes (9) Carotid artery disease Qualifiers: Laterality: bilateral Qualified Code(s): I77.9 - Disorder of arteries and arterioles, unspecified Is this a current diagnosis for this admission?: Yes (10) Dementia Qualifiers: Dementia type: vascular dementia Dementia behavioral disturbance: with behavioral disturbance Qualified Code(s): F01.51 - Vascular dementia with behavioral disturbance Is this a current diagnosis for this admission?: Yes (11) Do not resuscitate Is this a current diagnosis for this admission?: Yes (12) Pulmonary cachexia due to chronic obstructive pulmonary disease Is this a current diagnosis for this admission?: Yes - Time Critical Time spent with patient: 35 or more minutes Medications reviewed and adjusted accordingly: Yes
[2016-06-07] MEDS: ENALAPRILAT DIHYDRATE INJ/PF 1.25 MG/1 ML SDV IV PRN (22:29)
[2016-06-07] MEDS ORDERED: HALOPERIDOL 1 MG TABLET ONE (22:35)
[2016-06-08 05:02] LABS: BLOOD UREA NITROGEN 11 mg/dL (7-20); CALCIUM 8.5 mg/dL (8.4-10.2)
[2016-06-08 05:23] LABS: HEMATOCRIT 46.6 % (36.0-47.0); HEMOGLOBIN 15.3 g/dL (12.0-15.5); HGB HCT DIFFERENCE -0.7; MEAN CORPUSCULAR HGB CONC 32.8 g/dL (32.0-36.0); MEAN CORPUSCULAR VOLUME 95 fl (80-97); RED BLOOD COUNT 4.92 10^6/uL (3.72-5.28); RED CELL DISTRIBUTION WIDTH 14.7 % (11.5-14.0); WHITE BLOOD COUNT 12.5 10^3/uL (4.0-10.5)
[2016-06-08 05:25] LABS: ANISOCYTOSIS SLIGHT; BASOPHILS % (MANUAL) 0 % (0-2); EOSINOPHILS % (MANUAL) 0 % (0-6); LYMPHOCYTES % (MANUAL) 6 % (13-45); POLYCHROMASIA SLIGHT; TOTAL CELLS COUNTED 100
[2016-06-08 05:26] LABS: TOXIC GRANULATION SLIGHT
[2016-06-08 05:27] LABS: ANION GAP 11 (5-19); CARBON DIOXIDE 30 mmol/L (22-30); CHLORIDE 91 mmol/L (98-107); CREATININE RESULT 0.36 mg/dL (0.52-1.25); GLUCOSE 108 mg/dL (75-110); MAGNESIUM 1.6 mg/dL (1.6-2.3); SODIUM 131.8 mmol/L (137-145)
[2016-06-08 05:29] LABS: POTASSIUM 4.6 mmol/L (3.6-5.0)
[2016-06-08] MEDS: ALPRAZOLAM 0.25 MG TABLET NG SCH (05:32)
[2016-06-08] MEDS: LANSOPRAZOLE 15 MG TAB.RAP.DR PO SCH (05:32)
[2016-06-08] MEDS: METHYLPREDNISOLONE INJ 125 MG/2 ML SDV IV SCH (05:33)
[2016-06-08] MEDS: HEPARIN SOD (PORCINE) 5,000 UNIT/ML 1 ML SYRINGE SUBCUT SCH ×2 (05:36→14:24)
[2016-06-08] MEDS: IPRATROPIUM/ALBUTEROL 0.5-2.5 MG/3 ML AMPUL NEB SCH ×3 (08:59→19:43)
[2016-06-08] MEDS: LEVOFLOXACIN 750 MG/D5W RTU 150 ML IV SCH (09:08)
[2016-06-08] MEDS: FAMOTIDINE INJ/PF 20 MG/2 ML SDV IV SCH (09:09)
[2016-06-08] MEDS: LIDOCAINE 5% (700 MG) TRANSDERMAL ADH..PATCH TP SCH (09:09)
[2016-06-08] MEDS ORDERED: METHYLPREDNISOLONE INJ 40 MG/1 ML SDV IV SCH ×2 (14:00→22:00)
[2016-06-08] MEDS ORDERED: ACETAMINOPHEN 325 MG TABLET PO PRN (14:45)
[2016-06-08] MEDS: ENALAPRILAT DIHYDRATE INJ/PF 1.25 MG/1 ML SDV IV PRN (20:45)
[2016-06-09] MEDS: HEPARIN SOD (PORCINE) 5,000 UNIT/ML 1 ML SYRINGE SUBCUT SCH ×4 (00:03→21:32)
[2016-06-09] MEDS: CEFUROXIME 500 MG TABLET PO SCH ×3 (01:12→21:29)
[2016-06-09] MEDS: ENALAPRILAT DIHYDRATE INJ/PF 1.25 MG/1 ML SDV IV PRN ×2 (04:11→21:27)
[2016-06-09] MEDS: LANSOPRAZOLE 15 MG TAB.RAP.DR PO SCH (06:58)
[2016-06-09] MEDS: IPRATROPIUM/ALBUTEROL 0.5-2.5 MG/3 ML AMPUL NEB SCH ×3 (07:57→20:43)
[2016-06-09] MEDS: PREDNISONE 20 MG TABLET PO SCH ×2 (09:15→18:09)
[2016-06-09] MEDS: LIDOCAINE 5% (700 MG) TRANSDERMAL ADH..PATCH TP SCH (09:16)
[2016-06-09] MEDS: AMLODIPINE BESYLATE 10 MG TABLET PO SCH (12:31)
--- NOTE | 2016-06-09 13:35 | PDOC PROGRESS REPORT ---
Subjective Progress Note for:: 06/08/16 Subjective:: Patient remains extubated today doing well. Patient reports she feels as though she has to urinate. And I reminded her several times during our interview that she has a catheter in her bladder. Patient denies chest pain, shortness of breath, abdominal pain, nausea, vomiting, fevers, chills, diarrhea , constipation, headache, new onset weakness. Physical Exam Vital Signs: Temp Pulse Resp BP Pulse Ox 98.3 F 85 16 161/88 H 91 L 06/08/16 06:39 06/08/16 07:00 06/08/16 06:39 06/08/16 06:39 06/08/16 06:39 Intake & Output 06/07/16 06/08/16 06/09/16 06:59 06:59 06:59 Intake Total 2113 1660 Output Total 930 2420 Balance 1183 -760 Weight 40.4 kg 41.6 kg Exam: General: Awake alert and oriented x2, no acute respiratory distress HEENT: AT/NC, PERRL, EOMI, oropharynx is moist, pink, no scleral icterus, no conjunctival injection Neck: No JVD, trachea midline), within, structures easily visible Chest: Clear to auscultation bilaterally, no wheezes rhonchi or rales CV: Regular rate and rhythm, normal S1 and S2, no murmur, rub, or gallop Abdomen: Soft, nontender to palpation, nondistended, active bowel sounds; no rebound, rigidity, or guarding Extremities: No cyanosis or edema; digital clubbing Neuro: Cranial nerves II through XII are grossly intact without focal deficits; awake alert and oriented x2 Psych: Flat affect Results Laboratory Results: 06/08/16 04:08 06/08/16 04:08 06/08/16 06/08/16 04:08 04:08 WBC 12.5 H RBC 4.92 Hgb 15.3 Hct 46.6 MCV 95 MCH 31.0 MCHC 32.8 RDW 14.7 H Plt Count 243 Seg Neutrophils % Not Reportable Lymphocytes % Not Reportable Monocytes % Not Reportable Eosinophils % Not Reportable Basophils % Not Reportable Absolute Neutrophils Not Reportable Absolute Lymphocytes Not Reportable Absolute Monocytes Not Reportable Absolute Eosinophils Not Reportable Absolute Basophils Not Reportable Sodium 131.8 L Potassium 4.6 D Chloride 91 L Carbon Dioxide 30 Anion Gap 11 BUN 11 Creatinine 0.36 L Est GFR ( Amer) > 60 Est GFR (Non-Af Amer) > 60 Glucose 108 Calcium 8.5 Magnesium 1.6 06/06/16 12:30 Tracheal Aspirate Gram Stain - Final 06/05/16 06/05/16 06/06/16 23:05 23:05 04:50 Creatine Kinase 66 CK-MB (CK-2) 2.68 1.42 Troponin I 0.039 0.049 06/06/16 06/06/16 06/06/16 04:50 11:49 11:49 Creatine Kinase 58 180 H CK-MB (CK-2) 1.03 Troponin I 0.026 Impressions: Chest/Abdomen CTA 06/06/16 00:00 IMPRESSION: NO PULMONARY EMBOLI. COPD HEAVY BURDEN OF ATHEROSCLEROTIC ARTERIAL PLAQUE WITH PROBABLE OCCLUDED LEFT SUBCLAVIAN ARTERY AND POSSIBLE INFRARENAL ABDOMINAL AORTIC OCCLUSION DISTAL TO THE RENAL ARTERIES Chest X-Ray 06/07/16 06:00 IMPRESSION: No significant change. No pneumothorax. Assessment & Plan - Diagnosis (1) Chronic bronchitis with COPD (chronic obstructive pulmonary disease) Is this a current diagnosis for this admission?: YesPlan: Transition patient to prednisone and continue scheduled nebulized treatments (2) Acute hypoxemic respiratory failure Is this a current diagnosis for this admission?: YesPlan: This is likely acute on chronic hypoxemic respiratory failure secondary to patient's long-standing end-stage COPD. Patient has COPD exacerbation with gram -negative diplococci. Likely Moraxella catarrhalis. (3) Acute encephalopathy Is this a current diagnosis for this admission?: YesPlan: Likely secondary to UTI. Complicated by patient's underlying CO2 narcosis. Currently, this appears to be patient's baseline per her family. (4) Urinary tract infection Qualifiers: Urinary tract infection type: site unspecified Is this a current diagnosis for this admission?: YesPlan: Urine appeared to be grossly infected, but currently is not growing anything. Levaquin likely is covering this. Remove Palencia catheter. (5) Hypokalemia Is this a current diagnosis for this admission?: Yes (6) Tobacco abuse Is this a current diagnosis for this admission?: YesPlan: Nicotine patch (7) Alcoholic dementia Qualifiers: Dementia behavioral disturbance: without behavioral disturbance Qualified Code(s): F10.97 - Alcohol use, unspecified with alcohol-induced persisting dementia Is this a current diagnosis for this admission?: Yes (8) History of alcoholism Is this a current diagnosis for this admission?: Yes (9) Carotid artery disease Qualifiers: Laterality: bilateral Qualified Code(s): I77.9 - Disorder of arteries and arterioles, unspecified Is this a current diagnosis for this admission?: Yes (10) Dementia Qualifiers: Dementia type: vascular dementia Dementia behavioral disturbance: with behavioral disturbance Qualified Code(s): F01.51 - Vascular dementia with behavioral disturbance Is this a current diagnosis for this admission?: YesPlan: An assisted living facility based on this. Will have physical therapy evaluate to see if she will need to go to rehabilitation prior to returning to assisted living (11) Do not resuscitate Is this a current diagnosis for this admission?: Yes (12) Pulmonary cachexia due to chronic obstructive pulmonary disease Is this a current diagnosis for this admission?: YesPlan: We'll give patient supplemental nutrition with Magic cup. Concern for patient caloric intake and healing. - Time Time Spent with patient: 25-34 minutes Medications reviewed and adjusted accordingly: Yes Anticipated discharge: Home with Homehealth, Acute Rehab Within: within 48 hours
--- NOTE | 2016-06-09 13:39 | PDOC PROGRESS REPORT ---
Subjective Progress Note for:: 06/09/16 Subjective:: Patient reports she wants a cigarette. Patient reports no new complaints. Patient denies chest pain, shortness of breath, abdominal pain, nausea, vomiting , fevers, chills, diarrhea, constipation, headache, new onset weakness. Patient is noted to be hypoxic when ambulating without oxygen. Physical Exam Vital Signs: Temp Pulse Resp BP Pulse Ox 98.9 F 90 18 179/86 H 94 06/09/16 03:35 06/09/16 06:57 06/09/16 03:35 06/09/16 06:03 06/09/16 03:35 Intake & Output 06/08/16 06/09/16 06/10/16 06:59 06:59 06:59 Intake Total 1660 2161 Output Total 2420 Balance -760 2161 Weight 41.6 kg 41.6 kg Exam: General: Awake alert and oriented x2, no acute respiratory distress HEENT: AT/NC, PERRL, EOMI, oropharynx is moist, pink, no scleral icterus, no conjunctival injection, small excoriation near left mandible Neck: No JVD, trachea midline, thin, structures easily visible Chest: Clear to auscultation bilaterally, no wheezes rhonchi or rales CV: Regular rate and rhythm, normal S1 and S2, no murmur, rub, or gallop Abdomen: Soft, nontender to palpation, nondistended, active bowel sounds; no rebound, rigidity, or guarding Extremities: No cyanosis or edema; digital clubbing Neuro: Cranial nerves II through XII are grossly intact without focal deficits; awake alert and oriented x2 Psych: Flat affect Results Laboratory Results: 06/08/16 04:08 06/08/16 04:08 06/06/16 12:30 Tracheal Aspirate Gram Stain - Final 06/06/16 12:30 Tracheal Aspirate Sputum Culture - Final Morax.(Branhamella)Catarrhalis Reduced Normal Kathy 06/06/16 12:30 Palencia Catheter Urine Culture - Final NO GROWTH 2 DAYS 06/05/16 06/05/16 06/06/16 23:05 23:05 04:50 Creatine Kinase 66 CK-MB (CK-2) 2.68 1.42 Troponin I 0.039 0.049 06/06/16 06/06/16 06/06/16 04:50 11:49 11:49 Creatine Kinase 58 180 H CK-MB (CK-2) 1.03 Troponin I 0.026 Impressions: Chest/Abdomen CTA 06/06/16 00:00 IMPRESSION: NO PULMONARY EMBOLI. COPD HEAVY BURDEN OF ATHEROSCLEROTIC ARTERIAL PLAQUE WITH PROBABLE OCCLUDED LEFT SUBCLAVIAN ARTERY AND POSSIBLE INFRARENAL ABDOMINAL AORTIC OCCLUSION DISTAL TO THE RENAL ARTERIES Chest X-Ray 06/08/16 06:00 IMPRESSION: Bibasilar densities as noted above Assessment & Plan - Diagnosis (1) Chronic bronchitis with COPD (chronic obstructive pulmonary disease) Is this a current diagnosis for this admission?: YesPlan: Decrease prednisone and change to prn nebulized treatments (2) Acute hypoxemic respiratory failure Is this a current diagnosis for this admission?: YesPlan: This is likely acute on chronic hypoxemic respiratory failure secondary to patient's long-standing end-stage COPD. Patient has COPD exacerbation with Moraxella catarrhalis. Patient transitioned to Ceftin for this. Patient has noted penicillin allergy. (3) Acute encephalopathy Is this a current diagnosis for this admission?: YesPlan: Resolved. Likely secondary to UTI. Complicated by patient's underlying CO2 narcosis. (4) Urinary tract infection Qualifiers: Urinary tract infection type: site unspecified Hematuria presence: without hematuria Qualified Code(s): N39.0 - Urinary tract infection, site not specified Is this a current diagnosis for this admission?: YesPlan: Urine appeared to be grossly infected, but currently is not growing anything. Urinating without difficulty. (5) Hypokalemia Is this a current diagnosis for this admission?: Yes (6) Tobacco abuse Is this a current diagnosis for this admission?: YesPlan: Nicotine patch (7) Alcoholic dementia Qualifiers: Dementia behavioral disturbance: without behavioral disturbance Qualified Code(s): F10.97 - Alcohol use, unspecified with alcohol-induced persisting dementia Is this a current diagnosis for this admission?: Yes (8) History of alcoholism Is this a current diagnosis for this admission?: Yes (9) Carotid artery disease Qualifiers: Laterality: bilateral Qualified Code(s): I77.9 - Disorder of arteries and arterioles, unspecified Is this a current diagnosis for this admission?: Yes (10) Dementia Qualifiers: Dementia type: vascular dementia Dementia behavioral disturbance: with behavioral disturbance Qualified Code(s): F01.51 - Vascular dementia with behavioral disturbance Is this a current diagnosis for this admission?: YesPlan: Patient will be able to return to her assisted living facility with home oxygen. (11) Do not resuscitate Is this a current diagnosis for this admission?: Yes (12) Pulmonary cachexia due to chronic obstructive pulmonary disease Is this a current diagnosis for this admission?: YesPlan: Magic cup 3 times a day with meals. (13) Hyponatremia Is this a current diagnosis for this admission?: YesPlan: Hyponatremia secondary to mild dehydration. Resolved - Time Time Spent with patient: 25-34 minutes Medications reviewed and adjusted accordingly: Yes Anticipated discharge: Home with Homehealth Within: when bed available
[2016-06-09] MEDS ORDERED: BUSPIRONE HCL 10 MG TABLET PO ONE (14:00)
[2016-06-09] MEDS ORDERED: NICOTINE 21 MG/24 HR PATCH.TD24 TD ONE (14:00)
[2016-06-09] MEDS: BUSPIRONE HCL 10 MG TABLET PO SCH (18:08)
[2016-06-09] MEDS: LISINOPRIL 10 MG TABLET PO SCH (21:28)
[2016-06-10] MEDS: HEPARIN SOD (PORCINE) 5,000 UNIT/ML 1 ML SYRINGE SUBCUT SCH ×3 (05:44→22:23)
[2016-06-10] MEDS: LANSOPRAZOLE 15 MG TAB.RAP.DR PO SCH (05:47)
[2016-06-10] MEDS: IPRATROPIUM/ALBUTEROL 0.5-2.5 MG/3 ML AMPUL NEB SCH ×3 (08:43→19:32)
[2016-06-10] MEDS: LISINOPRIL 10 MG TABLET PO SCH ×2 (09:29→22:23)
[2016-06-10] MEDS: CEFUROXIME 500 MG TABLET PO SCH ×2 (09:29→22:23)
[2016-06-10] MEDS: FERROUS SULFATE 325 MG TABLET PO SCH (09:29)
[2016-06-10] MEDS: TRAZODONE HCL 50 MG TABLET PO SCH (09:30)
[2016-06-10] MEDS: PREDNISONE 20 MG TABLET PO SCH (09:31)
[2016-06-10] MEDS: NICOTINE 21 MG/24 HR PATCH.TD24 TD SCH (09:31)
[2016-06-10] MEDS: DONEPEZIL HCL 5 MG TABLET PO SCH (09:31)
[2016-06-10] MEDS: BUSPIRONE HCL 10 MG TABLET PO SCH ×2 (09:31→18:35)
[2016-06-10] MEDS: LIDOCAINE 5% (700 MG) TRANSDERMAL ADH..PATCH TP SCH (09:32)
[2016-06-10] MEDS: AMLODIPINE BESYLATE 10 MG TABLET PO SCH (14:44)
--- NOTE | 2016-06-10 16:25 | PDOC PROGRESS REPORT ---
Subjective Progress Note for:: 06/10/16 Subjective:: Patient denies chest pain, shortness of breath, abdominal pain, nausea, vomiting , fevers, chills, diarrhea, constipation, headache, new onset weakness. Physical Exam Vital Signs: Temp Pulse Resp BP Pulse Ox 98.6 F 85 16 148/83 H 90 L 06/10/16 03:02 06/10/16 06:56 06/10/16 03:02 06/10/16 03:02 06/10/16 04:49 Intake & Output 06/09/16 06/10/16 06/11/16 06:59 06:59 06:59 Intake Total 2173 2286 Balance 2173 2286 Weight 41.6 kg 45.5 kg Exam: General: Awake alert and oriented x2, no acute respiratory distress HEENT: AT/NC, PERRL, EOMI, oropharynx is moist, pink, no scleral icterus, no conjunctival injection, small excoriation near left mandible Neck: No JVD, trachea midline, thin, structures easily visible Chest: Clear to auscultation bilaterally, no wheezes rhonchi or rales CV: Regular rate and rhythm, normal S1 and S2, no murmur, rub, or gallop Abdomen: Soft, nontender to palpation, nondistended, active bowel sounds; no rebound, rigidity, or guarding Extremities: No cyanosis or edema; digital clubbing Neuro: Cranial nerves II through XII are grossly intact without focal deficits; awake alert and oriented x2 Psych: Normal mood and affect Results Laboratory Results: 06/08/16 04:08 06/08/16 04:08 06/05/16 06/05/16 06/06/16 23:05 23:05 04:50 Creatine Kinase 66 CK-MB (CK-2) 2.68 1.42 Troponin I 0.039 0.049 06/06/16 06/06/16 06/06/16 04:50 11:49 11:49 Creatine Kinase 58 180 H CK-MB (CK-2) 1.03 Troponin I 0.026 Impressions: Chest/Abdomen CTA 06/06/16 00:00 IMPRESSION: NO PULMONARY EMBOLI. COPD HEAVY BURDEN OF ATHEROSCLEROTIC ARTERIAL PLAQUE WITH PROBABLE OCCLUDED LEFT SUBCLAVIAN ARTERY AND POSSIBLE INFRARENAL ABDOMINAL AORTIC OCCLUSION DISTAL TO THE RENAL ARTERIES Chest X-Ray 01/06/17 06:00 IMPRESSION: Bibasilar densities as noted above Assessment & Plan - Diagnosis (1) Chronic bronchitis with COPD (chronic obstructive pulmonary disease) Is this a current diagnosis for this admission?: YesPlan: Decrease prednisone and change to prn nebulized treatments (2) Acute hypoxemic respiratory failure Is this a current diagnosis for this admission?: YesPlan: This is likely acute on chronic hypoxemic respiratory failure secondary to patient's long-standing end-stage COPD. Patient has COPD exacerbation with Moraxella catarrhalis. Patient transitioned to Ceftin for this. Patient has noted penicillin allergy. (3) Acute encephalopathy Is this a current diagnosis for this admission?: YesPlan: Resolved. Likely secondary to UTI. Complicated by patient's underlying CO2 narcosis. (4) Urinary tract infection Qualifiers: Urinary tract infection type: site unspecified Hematuria presence: without hematuria Qualified Code(s): N39.0 - Urinary tract infection, site not specified Is this a current diagnosis for this admission?: YesPlan: Urine appeared to be grossly infected, but currently is not growing anything. Urinating without difficulty. (5) Hypokalemia Is this a current diagnosis for this admission?: Yes (6) Tobacco abuse Is this a current diagnosis for this admission?: YesPlan: Nicotine patch (7) Alcoholic dementia Qualifiers: Dementia behavioral disturbance: without behavioral disturbance Qualified Code(s): F10.97 - Alcohol use, unspecified with alcohol-induced persisting dementia Is this a current diagnosis for this admission?: YesPlan: Resides at assisted living facility due to this. (8) History of alcoholism Is this a current diagnosis for this admission?: Yes (9) Carotid artery disease Qualifiers: Laterality: bilateral Qualified Code(s): I77.9 - Disorder of arteries and arterioles, unspecified Is this a current diagnosis for this admission?: Yes (10) Dementia Qualifiers: Dementia type: vascular dementia Dementia behavioral disturbance: with behavioral disturbance Qualified Code(s): F01.51 - Vascular dementia with behavioral disturbance Is this a current diagnosis for this admission?: Yes (11) Do not resuscitate Is this a current diagnosis for this admission?: Yes (12) Pulmonary cachexia due to chronic obstructive pulmonary disease Is this a current diagnosis for this admission?: YesPlan: BMI of 18.3. Magic cup 3 times a day with meals. (13) Hyponatremia Is this a current diagnosis for this admission?: YesPlan: Hyponatremia secondary to mild dehydration. Resolved - Time Time Spent with patient: 25-34 minutes Medications reviewed and adjusted accordingly: Yes Anticipated discharge: Other - Assisted living Within: when bed available
[2016-06-11] MEDS: HEPARIN SOD (PORCINE) 5,000 UNIT/ML 1 ML SYRINGE SUBCUT SCH (05:03)
[2016-06-11] MEDS: LANSOPRAZOLE 15 MG TAB.RAP.DR PO SCH (05:24)
[2016-06-11] MEDS: IPRATROPIUM/ALBUTEROL 0.5-2.5 MG/3 ML AMPUL NEB SCH (08:18)
[2016-06-11] MEDS ORDERED: PREDNISONE 20 MG TABLET PO SCH (10:00)
[2016-06-11] MEDS: FERROUS SULFATE 325 MG TABLET PO SCH (10:12)
[2016-06-11] MEDS: TRAZODONE HCL 50 MG TABLET PO SCH (10:12)
[2016-06-11] MEDS: DONEPEZIL HCL 5 MG TABLET PO SCH (10:13)
[2016-06-11] MEDS: LISINOPRIL 10 MG TABLET PO SCH (10:13)
[2016-06-11] MEDS: CEFUROXIME 500 MG TABLET PO SCH (10:13)
[2016-06-11] MEDS: NICOTINE 21 MG/24 HR PATCH.TD24 TD SCH (10:13)
[2016-06-11] MEDS: LIDOCAINE 5% (700 MG) TRANSDERMAL ADH..PATCH TP SCH (10:14)
[2016-06-11] MEDS: BUSPIRONE HCL 10 MG TABLET PO SCH (10:14)
--- NOTE | 2016-06-11 10:43 | PDOC DISCHARGE SUMMARY ---
General - Admit/Disc Date/PCP Admission Date/Primary Care Provider: 06/05/16 20:48 LORI OLEA Discharge Date: 06/11/16 - Discharge Diagnosis (1) Chronic bronchitis with COPD (chronic obstructive pulmonary disease) Is this a current diagnosis for this admission?: Yes (2) Acute hypoxemic respiratory failure Is this a current diagnosis for this admission?: Yes (3) Acute encephalopathy Is this a current diagnosis for this admission?: Yes (4) Urinary tract infection Is this a current diagnosis for this admission?: Yes (5) Hypokalemia Is this a current diagnosis for this admission?: Yes (6) Tobacco abuse Is this a current diagnosis for this admission?: Yes (7) Alcoholic dementia Is this a current diagnosis for this admission?: Yes (8) History of alcoholism Is this a current diagnosis for this admission?: Yes (9) Carotid artery disease Is this a current diagnosis for this admission?: Yes (10) Dementia Is this a current diagnosis for this admission?: Yes (11) Do not resuscitate Is this a current diagnosis for this admission?: Yes (12) Pulmonary cachexia due to chronic obstructive pulmonary disease Is this a current diagnosis for this admission?: Yes (13) Hyponatremia Is this a current diagnosis for this admission?: Yes - Additional Information Resuscitation Status: Do Not Resuscitate Discharge Diet: Regular Discharge Activity: Activity As Tolerated Home Medications: Amlodipine Besylate [Norvasc] 10 mg PO DAILY 10/02/13 Buspirone HCl [Buspar 10 mg Tablet] 7.5 mg PO BID 10/02/13 Ferrous Sulfate [Feosol 325 mg Tablet] 325 mg PO DAILY #30 tab 10/02/13 Pantoprazole Sodium [Protonix] 20 mg PO DAILY 10/02/13 Trazodone HCl [Desyrel 50 mg Tablet] 50 mg PO DAILY 10/02/13 Donepezil HCl [Aricept 5 mg Tablet] 5 mg PO DAILY #30 tablet 05/21/14 Lisinopril [Prinivil 10 mg Tablet] 10 mg PO Q12 #60 tablet 05/21/14 Acetaminophen [Tylenol 325 mg Tablet] 650 mg PO Q4HP PRN tablet 06/09/16 Albuterol Sulfate [Ventolin HFA MDI 18 GM] 1 - 2 puff IH Q4H PRN #1 mdi Amlodipine Besylate [Norvasc 10 mg Tablet] 10 mg PO DAILY tablet 06/09/16 Cefuroxime Axetil [Ceftin 500 mg Tablet] 500 mg PO Q12 #12 tablet 06/09/16 Prednisone [Deltasone 20 mg Tablet] 20 mg PO DAILY #5 tablet 06/11/16 History of Present Illness History of Present Illness: Please see H&P for full history of present illness. Hospital Course Hospital Course: Patient is a 55 year female with a known history of vascular/ alcoholic related dementia and COPD who presented to the emergency department with complaints of confusion and shortness of breath. Patient was found to be hypercapnic and also suspected UTI. Patient failed BiPAP in the emergency department and required intubation. Patient was intubated and grew out Moraxella catarrhalis. Patient's urine was unrevealing for infection. Patient did have significant hypoxia and a CTA was performed which did not reveal any pulmonary emboli; however, did reveal end-stage COPD. Patient was easily extubated. Patient had an uncomplicated post extubation course. Patient does require oxygen with ambulation. Patient has been encouraged to stop smoking and she reports that she will not stop. I have advised her not to smoke with oxygen on. I have also discussed with her daughters the long-term side effects of patient not wearing her oxygen including continue progressive cognitive decline, cardiac and pulmonary issues. Today patient is stable doing well and ready for discharge to her assisted living facility. Physical Exam Vital Signs: Temp Pulse Resp BP Pulse Ox 98.6 F 72 12 135/81 H 89 L 06/11/16 07:00 06/11/16 08:15 06/11/16 08:15 06/11/16 07:00 06/11/16 08:15 Intake & Output 06/10/16 06/11/16 06/12/16 06:59 06:59 06:59 Intake Total 2286 1280 Balance 2286 1280 Weight 45.5 kg 46.7 kg Exam: General: Awake alert and oriented x2, no acute respiratory distress HEENT: AT/NC, PERRL, EOMI, oropharynx is moist, pink, no scleral icterus, no conjunctival injection, small excoriation near left mandible Neck: No JVD, trachea midline, thin, structures easily visible Chest: Clear to auscultation bilaterally, no wheezes rhonchi or rales CV: Regular rate and rhythm, normal S1 and S2, no murmur, rub, or gallop Abdomen: Soft, nontender to palpation, nondistended, active bowel sounds; no rebound, rigidity, or guarding Extremities: No cyanosis or edema; digital clubbing Neuro: Cranial nerves II through XII are grossly intact without focal deficits; awake alert and oriented x2 Psych: Normal mood and affect Results Laboratory Results: 06/08/16 04:08 06/08/16 04:08 06/06/16 04:50 Blood Blood Culture - Final NO GROWTH IN 5 DAYS 06/05/16 23:05 Blood Blood Culture - Final NO GROWTH IN 5 DAYS 06/05/16 06/05/16 06/06/16 23:05 23:05 04:50 Creatine Kinase 66 CK-MB (CK-2) 2.68 1.42 Troponin I 0.039 0.049 06/06/16 06/06/16 06/06/16 04:50 11:49 11:49 Creatine Kinase 58 180 H CK-MB (CK-2) 1.03 Troponin I 0.026 Impressions: Chest/Abdomen CTA 06/06/16 00:00 IMPRESSION: NO PULMONARY EMBOLI. COPD HEAVY BURDEN OF ATHEROSCLEROTIC ARTERIAL PLAQUE WITH PROBABLE OCCLUDED LEFT SUBCLAVIAN ARTERY AND POSSIBLE INFRARENAL ABDOMINAL AORTIC OCCLUSION DISTAL TO THE RENAL ARTERIES Chest X-Ray 06/08/16 06:00 IMPRESSION: Bibasilar densities as noted above Qualifiers PATEINT BEING DISCHARGED WITH ANY OF THE FOLLOWING DIAGNOSIS?: No Plan Time Spent: Greater than 30 Minutes
[2016-06-11] MEDS: AMLODIPINE BESYLATE 10 MG TABLET PO SCH (12:25)
[2016-06-11 13:03] VITALS: BP 123/81
--- NOTE | 2016-06-11 16:51 | Progress Note ---
Provider Note Provider Note: After verification with her assisted living facility, please note the following changes to patient medications: Patient is to RESUME: 1. Norvasc 10mg po daily 2. Lipitor 20mg po daily 3. Buspar 7.5mg po bid 4. Aricept 10mg po QHS 5. Ferrous Sulfate 325mg po daily 6. Neurontin 100mg po TID 7. Mighty shake three times daily 8. Protonix 40mg po daily 9. Metoprolol XL 50mg po daily 10. Risperidone 0.25mg po BID 11. Trazodone 50mg po QHS STOP: 1. Clonidine NEW: 1. HCTZ 12.5mg po qday 2. Lisinopril 5mg po daily 3. Ceftin 500mg po q12 #12 4. Prednisone 20mg po daily #5
== END 2016-06-11 13:02 | disposition home health service (06) | DRG 208 ==
LOC: ER 15:19 → EH 20:48 → UNDOADMIN 21:00 → ICU 06-06 00:35 → 4N 06-08 06:35
PROVIDERS: ADMIT Internal Medicine; ATTEND Internal Medicine
PROC: 5A1945Z Respiratory Ventilation, 24-96 Consecutive Hours (ICD-10-PCS; principal; 2016-06-05)
PROC: 0BH17EZ Insertion of Endotracheal Airway into Trachea, Via Natural or Artificial Opening (ICD-10-PCS; 2016-06-05)
DX: J44.1 Chronic obstructive pulmonary disease with (acute) exacerbation (principal); J96.21 Acute and chronic respiratory failure with hypoxia; G93.49 Other encephalopathy; R64 Cachexia; F05 Delirium due to known physiological condition; F01.51 Vascular dementia, unspecified severity, with behavioral disturbance; E87.1 Hypo-osmolality and hyponatremia; N39.0 Urinary tract infection, site not specified; F10.27 Alcohol dependence with alcohol-induced persisting dementia; Z68.1 Body mass index [BMI] 19.9 or less, adult; E87.6 Hypokalemia; E83.42 Hypomagnesemia; I77.89 Other specified disorders of arteries and arterioles; F10.21 Alcohol dependence, in remission; I10 Essential (primary) hypertension; F17.210 Nicotine dependence, cigarettes, uncomplicated; Z66 Do not resuscitate; Z91.013 Allergy to seafood; Z91.040 Latex allergy status; Z91.011 Allergy to milk products; Z88.0 Allergy status to penicillin
CPT/HCPCS: 36415; 51702; 71010; 71275; 80048; 80053; 80307; 81001; 82550; 82553; 82803; 82962; 83735; 83880; 83930; 83935; 84100; 84134; 84443; 84484; 85025; 87040; 87070; 87077; 87086; 87205; 93005; 93010; 93306; 94002; 94003; 94640; 94799; 96374; 99291; 99292; G8978-GP; G8979-GP; G8980-GP; J0330; J1644; J1815; J1940; J1956; J2704; J2920; J2930; J3010; J3490; J7512; J7620; S0028

== ENCOUNTER 2017-06-04 17:40 | Emergency (ER) | payer MEDICARE, MEDICAID ==
[2017-06-04] MEDS ORDERED: IPRATROPIUM/ALBUTEROL 0.5-2.5 MG/3 ML AMPUL NEB ONE (17:43)
--- NOTE | 2017-06-04 17:44 | ER Document Report ---
ED General - General Stated Complaint: DIFFICULTY BREATHING Time Seen by Provider: 06/04/17 17:43 Notes: 56-year-old female active smoker with end-stage COPD on as needed oxygen at the facility presents with shortness of breath. She actually states she feels no more short of breath than usual today but she had incidental oxygen saturations down in the 50s today. She denies increasing cough or sputum production denies fever and chills. She was treated prior to arrival here by EMS with duo nebs and steroids. TRAVEL OUTSIDE OF THE [place] IN LAST 30 DAYS: No - Related Data Allergies/Adverse Reactions: Penicillins Allergy (Mild, Verified 06/04/17 18:30) latex Allergy (Verified 06/04/17 18:30) [place] And Derivatives Adverse Reaction (Verified 06/04/17 18:30) coffee (Coffea arabica) [Coffee] Adverse Reaction (Verified 06/04/17 18:30) milk [Milk] Adverse Reaction (Verified 06/04/17 18:30) shellfish derived [Shellfish Derived] Adverse Reaction (Verified 06/04/17 18:30) tomato [Tomato] Adverse Reaction (Verified 06/04/17 18:30) Past Medical History - Social History Smoking Status: Current Every Day Smoker Cigarette use (# per day): Yes Smoking Education Provided: Yes - The patient ED visit today was directly related to their abuse of tobacco. Family History: Reviewed & Not Pertinent, Other - Unable to obtain - Past Medical History Cardiac Medical History: Reports: Hx Hypertension Pulmonary Medical History: Reports: Hx COPD Psychiatric Medical History: Reports: Hx Dementia Denies: Hx Depression Past Surgical History: Reports: Hx Carotid Endarterectomy - Immunizations Hx Diphtheria, Pertussis, Tetanus Vaccination: Yes Review of Systems - Review of Systems Notes: REVIEW OF SYSTEMS GEN: Denies fever, chills, weight loss ENT: Denies sore throat, nasal discharge, ear pain EYES: Denies blurry vision, eye pain, discharge CV: Denies chest pain, palpitations, edema RESP: D chronic shortness of breath GI: Denies abdominal pain, nausea, vomiting, diarrhea MSK: Denies joint pain/swelling, edema, SKIN: Denies rash, skin lesions LYMPH: Denies swollen glands/lymph nodes NEURO: Denies headache, focal weakness or numbness, dizziness PSYCH: Denies depression, suicidal or homicidal ideation PHYSICAL EXAMINATION General: Mild distress Head: Atraumatic, normocephalic ENT: Mouth normal, oropharynx moist, no exudates or tonsillar enlargement Eyes: Conjunctiva normal, pupils equal, lids normal Neck: No JVD, supple, no guarding CVS: Normal rate, regular rhythm, no murmurs Resp: Slightly tachypneic with prolonged expiratory phase, scant wheezing but good air movement GI: Nondistended, soft, no tenderness to palpation, no rebound or guarding Ext: No deformities, no edema, normal range of motion in upper and lower ext Back: No CVA or midline TTP Skin: No rash, warm Lymphatic: No lymphadeopathy noted Neuro: Awake, alert. Face symmetric. GCS 15. Physical Exam - Vital signs Vitals: Temp Pulse Resp BP Pulse Ox 98.4 F 88 18 134/85 H 93 06/04/17 18:08 06/04/17 18:08 06/04/17 18:08 06/04/17 18:08 06/04/17 18:08 Course - Re-evaluation Re-evalutation: 06/04/17 17:52 Patient presents with COPD and hypoxia at her facility. She is in mild distress but has been treated with EMS medications. Likely COPD exacerbation secondary to going out in the cold to smoke. No fever sore throat or headache to suggest flu. Will rule out pneumonia with chest film , give 1 more DuoNeb and observe in the ED. 06/04/17 18:19 Blood in the ED. X-ray looks like chronic changes with no pneumothorax. Labs are pending. 06/04/17 18:45 Reassessed at 6:40 PM. She desires no further workup. She would like to go home. Her chest x-ray does not show pneumonia. Her CBC shows elevated hemoglobin. Chemistry is pending but I doubt this is going to be abnormal normal to chart changer. She refuses steroids but I will prescribe her both steroids and doxy for a COPD flare. Smoking cessation emphasized. Insert discharge - Vital Signs Vital signs: Temp Pulse Resp BP Pulse Ox 98.4 F 88 27 H 134/85 H 93 06/04/17 18:08 06/04/17 18:08 06/04/17 18:13 06/04/17 18:08 06/04/17 18:13 - Laboratory Result Diagrams: 06/04/17 17:45 Laboratory results interpreted by me: 06/04/17 17:45 Hgb 15.8 H Hct 47.8 H RDW 14.5 H Lymphocytes % 12.3 L Monocytes % 19.4 H - Diagnostic Test Radiology reviewed: Image reviewed, Reports reviewed Discharge - Discharge Clinical Impression: COPD (chronic obstructive pulmonary disease) Qualifiers: COPD type: unspecified COPD Qualified Code(s): J44.9 - Chronic obstructive pulmonary disease, unspecified Condition: Good Disposition: HOME, SELF-CARE Instructions: Chronic Obstructive Lung Disease ([facility]) Additional Instructions: Please take the medicines I am prescribing as they will make you better. Prescriptions: Doxycycline Hyclate 100 mg PO BID #14 capsule Prednisone [Deltasone 20 mg Tablet] 3 tab PO DAILY 5 Days tablet
[2017-06-04 18:18] LABS: ABSOLUTE LYMPHOCYTES (AUTO) 0.7 10^3/uL (0.5-4.7); ABSOLUTE MONOCYTES (AUTO) 1.2 10^3/uL (0.1-1.4); ABSOLUTE NEUT (AUTO) 4.1 10^3/uL (1.7-8.2); BASOPHILS % (AUTO) 0.5 % (0-2); EOSINOPHILS % (AUTO) 0.3 % (0-6); HEMATOCRIT 47.8 % (36.0-47.0); HEMOGLOBIN 15.8 g/dL (12.0-15.5); LYMPHOCYTES % (AUTO) 12.3 % (13-45); MEAN CORPUSCULAR HEMOGLOBIN 32.2 pg (27.0-33.4); MEAN CORPUSCULAR HGB CONC 33.1 g/dL (32.0-36.0); MEAN CORPUSCULAR VOLUME 97 fl (80-97); MONOCYTES % (AUTO) 19.4 % (3-13); PLATELET COUNT 280 10^3/uL (150-450); RED BLOOD COUNT 4.91 10^6/uL (3.72-5.28); RED CELL DISTRIBUTION WIDTH 14.5 % (11.5-14.0); SEGMENTED NEUTROPHILS % (AUTO) 67.5 % (42-78); TOTAL CELLS COUNTED % (AUTO) 100 %
--- NOTE | 2017-06-04 18:23 | RADIOLOGY REPORT (SQ) ---
EXAM DESCRIPTION: CHEST SINGLE VIEW COMPLETED DATE/TIME: 06/04/2017 6:08 pm REASON FOR STUDY: SOB COPD COMPARISON: CT angio chest 06/06/2016 Chest films 06/05/2016, 06/07/2016, 06/08/2016 EXAM PARAMETERS: NUMBER OF VIEWS: One view. TECHNIQUE: Single frontal radiographic view of the chest acquired. RADIATION DOSE: NA LIMITATIONS: None. FINDINGS: LUNGS AND PLEURA: Obstructive lung disease with hyperlucency of the upper lobes. In the m id and lower lungs, there is pulmonary vascular prominence, with mild alveolar and interstitial edema from superimposed fluid overload or congestive failure. Trace right pleural effusion No pneumothorax MEDIASTINUM AND HILAR STRUCTURES: No masses. Contour normal. HEART AND VASCULAR STRUCTURES: No cardiomegaly BONES: No acute findings. HARDWARE: None in the chest. OTHER: No other significant finding. IMPRESSION: Mild fluid overload or congestive failure superimposed on obstructive lung disease TECHNICAL DOCUMENTATION: JOB ID: [id number] [employer]- All Rights Reserved
[2017-06-04 19:38] VITALS: BP 115/59
== END 2017-06-04 19:38 | disposition home or self-care (01) ==
LOC: ER 17:40
DX: J44.9 Chronic obstructive pulmonary disease, unspecified (principal); I10 Essential (primary) hypertension; F17.210 Nicotine dependence, cigarettes, uncomplicated; Z88.0 Allergy status to penicillin; Z91.040 Latex allergy status; Z91.011 Allergy to milk products; Z91.013 Allergy to seafood
CPT/HCPCS: 94640; 99285; 36415; 85025; 71045; A9270; J7620

== ENCOUNTER 2017-10-22 10:16 | Day surgery (SDC) | payer MEDICARE, MEDICAID ==
[2017-10-09 12:20] LABS: ABSOLUTE EOSINOPHILS # (AUTO) 0.1 10^3/uL (0.0-0.6); ABSOLUTE MONOCYTES (AUTO) 0.6 10^3/uL (0.1-1.4); ABSOLUTE NEUT (AUTO) 5.3 10^3/uL (1.7-8.2); BASOPHILS % (AUTO) 0.6 % (0-2); EOSINOPHILS % (AUTO) 1.5 % (0-6); HEMATOCRIT 50.6 % (36.0-47.0); HEMOGLOBIN 17.1 g/dL (12.0-15.5); MEAN CORPUSCULAR HGB CONC 33.8 g/dL (32.0-36.0); MEAN CORPUSCULAR VOLUME 95 fl (80-97); MONOCYTES % (AUTO) 7.9 % (3-13); PLATELET COUNT 250 10^3/uL (150-450); RED BLOOD COUNT 5.35 10^6/uL (3.72-5.28); RED CELL DISTRIBUTION WIDTH 15.9 % (11.5-14.0); TOTAL CELLS COUNTED % (AUTO) 100 %
[2017-10-09 12:21] LABS: INTERNATIONAL RATION (INR) 0.94; PARTIAL THROMBOPLASTIN TIME 31.3 SEC (23.5-35.8)
--- NOTE | 2017-10-09 14:00 | EKG REPORT ---
SEVERITY:- ABNORMAL ECG - SINUS RHYTHM CONSIDER LEFT VENTRICULAR HYPERTROPHY : Confirmed by: Nehemias Wyman MD 09-Oct-2017 13:59:20
[~2017-10-22 10:16] MED LIST: DOXYCYCLINE HYCLATE 100 MG in DEXTROSE 5%-WATER 250 ML IV PRN; DOXYCYCLINE HYCLATE 100 MG in NORMAL SALINE 250 ML IV PRN; LACTATED RINGERS 1000 ML IV PRN; LIDOCAINE 0.5% INJ-PF (5 MG/ML) 50 ML SDV SUBCUT PRN; LIDOCAINE 1%/EPINEPHRINE INJ 20 ML VIAL ONE; POVIDONE-IODINE 5% OPH PREP SOLN 30 ML ONE; SODIUM BICARBONATE 8.4% INJ 50 MEQ/50 ML DISP.SYRIN ONE
[2017-10-22] MEDS ORDERED: MIDAZOLAM 2 MG/2 ML INJ ONE (11:14)
[2017-10-22] MEDS ORDERED: PROPOFOL INJ 200 MG/20 ML VIAL IV ONE (11:14)
[2017-10-22 11:40] LABS: ANION GAP 10 (5-19); BLOOD UREA NITROGEN 15 mg/dL (7-20); CALCIUM 9.1 mg/dL (8.4-10.2); CARBON DIOXIDE 35 mmol/L (22-30); CHLORIDE 94 mmol/L (98-107); GLUCOSE 91 mg/dL (75-110); POTASSIUM 4.4 mmol/L (3.6-5.0); SODIUM 139.3 mmol/L (137-145)
[2017-10-22] MEDS ORDERED: OXYCODONE-ACETAMINOPHEN 5-325 MG TABLET PO PRN ×2 (11:58)
[2017-10-22] MEDS ORDERED: PROMETHAZINE HCL INJ 25 MG/1 ML VIAL IV PRN ×2 (11:58)
[2017-10-22] MEDS ORDERED: FENTANYL CITRATE INJ/PF 100 MCG/2 ML AMPUL IV PRN ×3 (11:58)
[2017-10-22] MEDS ORDERED: DIPHENHYDRAMINE HCL 50 MG/ML VIAL IV PRN (11:58)
[2017-10-22] MEDS ORDERED: MEPERIDINE HCL/PF INJ 25 MG/1 ML DISP.SYRIN IV PRN (11:58)
--- NOTE | 2017-10-22 13:10 | Operative Report ---
Operative Report DATE OF SURGERY: 10/22/17 PREOPERATIVE DIAGNOSIS: Carcinoma of the left oral commissure. 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 Patient was brought into the operating room and placed on the operating room table in a supine position. Patient was then prepped with a Betadine scrub and Betadine solution and draped in a sterile and aseptic manner. The area was then marked. 12 O'clock was marked towards oral commissure 3 O'clock was marked towards the lower eyelid 6:00 was marked towards the lateral cheek 9:00 was marked towards the chin The area was then anesthetized with 1% lidocaine with epinephrine and bicarbonate for its anesthetic and hemostatic effects. The area was then excised and marked at 12:00. The specimen was sent for frozen section. The results came back that the deep and lateral margins were free. We had considered a primary closure but this would go against the natural relaxed skin tension lines. A primary closure would be too tight and would have increased chance of dehiscence. This will leave more of a scar so we decided to use a cheek sliding advancement flap reconstruction which would camouflage the scar better and take tension off of the closure so that would be less chances of complications. We decided to use the cheek sliding advancement flap also because we can mobilize enough skin to take tension off the closure only created at the flap so we would have the least amount of pull and distortion on the oral commissure which had minimal support. Then we went ahead and outlined the flap and anesthetized it. We then incised the flap and developed a flap maintaining the subdermal plexus. Then we undermined 360 to allow for plate like scarring and minimize trap door deformity. Throughout the case hemostasis was achieved with the bipolar. We then sutured the flap into its new position using 5-0 Vicryl for the subcutaneous and deep dermis. Skin was closed with a running subcuticular suture stitch using 4-0 PDS with knots being tied on the outside. And 4-0 PDS suture was used for support and placed in the central area of the incision. We applied Dermabond to keep the incision sterile and not be violated by saliva and also for extra reinforcement because this was a very mobile area in the patient that may need to be <100% compliant with her instructions for care. Patient was then reversed from anesthesia and taken to the [facility] for recovery. The patient tolerated well. There were no complications. Lesion size was approximately 2.1 x 1.7 cm but the defect was much larger after the resection please see pathology for actual size. Portions of this note may be dictated using [employer] voice recognition software. Occasional variations and spelling and vocabulary could be possible and are unintentional. Additionally, there is a chance that some errors may not be caught or corrected. Please notify the author of any discrepancies noted or if any statements are unclear. Subjective: No complaints Objective: Vital signs stable afebrile No bleeding Dressing intact Assessment and plan: Doing well. Elevate the operative site. Resume medications. Take antibiotics for 1 day Follow-up Full instructions were given to the patient and family and they understand Portions of this note may be dictated using [employer] voice recognition software. Occasional variations and spelling and vocabulary could be possible and are unintentional. Additionally, there is a chance that some errors may not be caught or corrected. Please notify the offer of any discrepancies noted or if any statements are unclear.
--- NOTE | 2017-10-22 13:14 | Discharge Summary ---
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 Antibiotics for 1 day, then discontinue. Elevate operative area to decrease swelling. Do not strain, or lift heavy objects. Call for excessive bleeding, increased temperature of 101, uncontrolled pain, or excessive nausea or vomiting. You may reach Dr. Wagner through his office at [phone]. In the event of an emergency after hours, then contact Dr. Wagner through [facility]. Return to the office for a postop check on . The time will be scheduled by the nursing staff of [facility] prior to discharge. Please give the patient a copy of their labs and EKG so they can bring this to their PMD. Thank you Portions of this note may be dictated using [employer] voice recognition software. Occasional variations and spelling and vocabulary could be possible and are unintentional. Additionally, there is a chance that some errors may not be caught or corrected. Please notify the offer of any discrepancies noted or if any statements are unclear. Referrals: MARCELLA WAGNER MD [ACTIVE STAFF] - 10/24/17 10:00 am Discharge Diet: As Tolerated Report the Following to Your Physician Immediately: Unusual Bleeding - Keep head elevated. Do not open the mouth wide. Eat soft food for the next several days. Do not do too much chewing. Do not get the dressing wet. Do not do any bending or straining. Limited activities. Do not sleep on the surgical site.
[2017-10-22] MEDS ORDERED: ACETAMINOPHEN 325 MG TABLET ONE (14:48)
[2017-10-22 14:59] VITALS: BP 178/90
== END 2017-10-22 15:10 | disposition home or self-care (01) ==
LOC: OROUT 10:16
PROVIDERS: ATTEND Plastic Surgery
DX: C44.02 Squamous cell carcinoma of skin of lip (principal); I10 Essential (primary) hypertension; F17.210 Nicotine dependence, cigarettes, uncomplicated; J44.9 Chronic obstructive pulmonary disease, unspecified; R01.1 Cardiac murmur, unspecified; R63.6 Underweight; F10.97 Alcohol use, unspecified with alcohol-induced persisting dementia; I25.2 Old myocardial infarction; Z87.11 Personal history of peptic ulcer disease; Z88.0 Allergy status to penicillin; Z86.73 Personal history of transient ischemic attack (TIA), and cerebral infarction without residual deficits; Z91.040 Latex allergy status; Z79.899 Other long term (current) drug therapy; Z68.1 Body mass index [BMI] 19.9 or less, adult
CPT/HCPCS: 93005; 36415; 85025; 85610; 85730; 80048; 88305 ×2; 88331 ×2; 93010; 14060; A9270; J2250; J3490 ×4; J7060; J7050; J2704; 300

== ENCOUNTER → 2018-01-21 | Outpatient (CLI) | payer MEDICARE, MEDICAID ==
--- NOTE | 2018-01-21 13:58 | WOMENS IMAGING REPORT ---
EXAM DESCRIPTION: BILAT SCREENING MAMMO W/CAD COMPLETED DATE/TIME: 01/21/2018 9:39 am REASON FOR STUDY: ROUTINE BILATERAL SCREENING;Z12.31 Z12.31 ENCNTR SCREEN MAMMOGRAM FOR MALIGNANT N EOPLASM OF DAPHNE COMPARISON: No previous mammograms are available for comparison TECHNIQUE: Standard craniocaudal and mediolateral oblique views of each breast recorded using digita l acquisition. LIMITATIONS: None. FINDINGS: Findings present which are benign by mammographic criteria. No suspicious masses, calcifi cations or architectural distortion. Pertinent benign findings: Benign bilateral breast parenchymal calcifications and arterial vascular c alcifications. Read with the assistance of CAD. .[facility] - R2 Cenova Version 1.3 .[facility] - R2 Cenova Version 1.3 .[facility] - R2 Cenova Version 2.4 .[facility] [place] - R2 Cenova Version 2.4 .[facility] - R2 Dampproofer Version 9.2 Benign mammographic findings may include one or more of the following: Smooth masses, popcorn/rim/co arse calcifications, asymmetries, post-procedure changes, and lesions with long-standing stability. IMPRESSION: BENIGN MAMMOGRAPHIC FINDINGS. BIRADS 2 BREAST DENSITY: c. The breasts are heterogeneously dense, which may obscure small masses. BIRAD: 2 BENIGN FINDING(S) RECOMMENDATION: ROUTINE SCREENING Please continue yearly bilateral screening mammography/tomosynthesis in January 2019 COMMENT: The patient has been notified of the results by letter per [place] requirements. Additional no tification policies are in place for contacting patient with suspicious or incomplete findings. Quality ID #[id number]: The [employer] recommends an annual screening mammogram for women aged 40 years or over. This facility utilizes a reminder system to ensure that all patients receive reminder letters, and/or direct phone calls for appointments. This includes reminders for routine scr eening mammograms, diagnostic mammograms, or other Breast Imaging Interventions when appropriate. Th is patient will be placed in the appropriate reminder system. The [employer] ([employer]) has developed recommendations for screening MRI of the breast s in certain patient populations, to be used in conjunction with mammography. Breast MRI surveillanc e may be appropriate for women with more than 20% lifetime risk of developing breast cancer as deter mined by genetic testing, significant family history of the disease, or history of mantle radiation f or Hodgkins Disease. ACR Practice Guidelines 2008. TECHNICAL DOCUMENTATION: FINDING NUMBER: (1) ASSESSMENT: (1) JOB ID: [id number] [employer]- All Rights Reserved Reading location - IP/workstation name: [email or web address]
== END ==
LOC: WI 09:09
PROVIDERS: ATTEND Physician Assistant Medical
DX: Z12.31 Encounter for screening mammogram for malignant neoplasm of breast (principal)
CPT/HCPCS: 77067